=== PATIENT | female | born 1950 | race Caucasian/White ===

== ENCOUNTER 2018-01-23 19:04 | Observation (INO) ==
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
[2018-01-23 19:50] LABS: Basophils % 0.4 %; Eosinophils # 0.2 K/mcL (0.0-0.6); Eosinophils % 2.3 %; Hematocrit 35.7 % (35.3-44.9); Hemoglobin 12.3 g/dL (11.5-15.4); Immature Granulocytes % 0.3 % (0-4); Lymphocytes # 1.4 K/mcL (0.6-4.6); Lymphocytes % 14.7 %; Mean Corpuscular HGB Conc 34.5 g/dL (31.6-35.5); Mean Corpuscular Hemoglobin 32.2 pg (28.0-33.3); Mean Corpuscular Volume 93.5 fL (83.0-100.0); Mean Platelet Volume 10.1 fL (9.4-12.4); Monocytes # 0.7 K/mcL (0.0-1.3); Neutrophils # 7.4 K/mcL (1.6-8.9); Platelet Count 345 K/mcL (140-400); Red Blood Count 3.82 M/mcL (3.82-4.97); Red Cell Distribution Width 12.1 % (11.5-14.5); Segmented Neutrophils % 75.3 %
[2018-01-23 20:02] LABS: Prothrombin Time 10.5 Seconds (9.4-12.1)
[2018-01-23 20:04] LABS: Activated Partial Thrombo Time 27.3 Seconds (26.0-36.0)
[2018-01-23 20:09] LABS: Albumin 3.8 g/dL (3.5-5.7); Albumin/Globulin Ratio 1.5 (1.1-2.2); Bilirubin,Direct 0.1 mg/dL (0.0-0.2); Bilirubin,Indirect 0.3 mg/dL (0.0-1.2); Bilirubin,Total 0.4 mg/dL (0.3-1.0); Globulin 2.5 g/dL (2.4-3.5); Total Protein 6.3 g/dL (6.4-8.9)
[2018-01-23 20:12] LABS: Troponin I < 0.03 ng/mL (< 0.04)
[2018-01-23 20:13] LABS: BUN/Creatinine Ratio 26 (6-26); Blood Urea Nitrogen 11 mg/dL (8-23); Calcium 9.3 mg/dL (8.6-10.3); Carbon Dioxide 24 mEq/L (23-29); Chloride 105 mEq/L (98-107); Glucose 125 mg/dL (70-105); Osmolality,Calculated 285 (280-300); Potassium 4.5 mEq/L (3.5-5.1); Sodium 137 mEq/L (136-145); eGFR For African Americans > 60 (> 60); eGFR For Non-African Americans > 60 (> 60)
[2018-01-23] MEDS ORDERED: *HR* Dextrose 50 % in Water (Syg) 50 ML SYRINGE IVP PRN (21:45)
[2018-01-23] MEDS ORDERED: *HR* OxyCODONE Immed Rel 5 MG TABLET PO PRN (21:45)
[2018-01-23] MEDS ORDERED: Naloxone 0.4 MG/ML INJ IVP PRN (21:45)
[2018-01-23] MEDS ORDERED: Dextrose Gel 15 GM/37.5 ML TUBE PO PRN ×2 (21:45)
[2018-01-23] MEDS ORDERED: Acetaminophen 325 MG TABLET PO PRN (21:45)
[2018-01-23] MEDS ORDERED: D5% in Water 1,000 ML IVC PRN (21:45)
[2018-01-23] MEDS ORDERED: Nitroglycerin 0.4 MG TAB.SUBL SL PRN (21:49)
[2018-01-23] MEDS ORDERED: NON-FORMULARY MEDICATION 1 EACH EACH (Insulin Glargine,Hum.Rec.Anlog [Lantus Solostar] 7 U SQ SCH (22:00)
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
[2018-01-23] MEDS: Insulin DETEMIR 100 UNIT/ML X5UNITS SQ SCH (22:51)
[2018-01-23] MEDS: *HR* Heparin 5,000 UNIT/ML VIAL SQ SCH (22:51)
[2018-01-24 02:27] LABS: Basophils # 0.1 K/mcL (0.0-0.2); Basophils % 0.5 %; Eosinophils # 0.2 K/mcL (0.0-0.6); Eosinophils % 2.4 %; Hematocrit 34.2 % (35.3-44.9); Hemoglobin 11.6 g/dL (11.5-15.4); Immature Granulocytes % 0.4 % (0-4); Lymphocytes # 2.4 K/mcL (0.6-4.6); Lymphocytes % 23.8 %; Mean Corpuscular HGB Conc 33.9 g/dL (31.6-35.5); Mean Corpuscular Hemoglobin 31.4 pg (28.0-33.3); Mean Corpuscular Volume 92.7 fL (83.0-100.0); Mean Platelet Volume 10.4 fL (9.4-12.4); Monocytes # 0.8 K/mcL (0.0-1.3); Monocytes % 7.7 %; Neutrophils # 6.5 K/mcL (1.6-8.9); Platelet Count 339 K/mcL (140-400); Red Blood Count 3.69 M/mcL (3.82-4.97); Red Cell Distribution Width 12.2 % (11.5-14.5); Segmented Neutrophils % 65.2 %
[2018-01-24 02:49] LABS: Alanine Aminotransferase 19 Units/L (7-52); Albumin 3.5 g/dL (3.5-5.7); Albumin/Globulin Ratio 1.5 (1.1-2.2); Alkaline Phosphatase 55 Units/L (34-104); Aspartate Amino Transferase 15 Units/L (13-39); BUN/Creatinine Ratio 26 (6-26); Bilirubin,Total 0.4 mg/dL (0.3-1.0); Blood Urea Nitrogen 13 mg/dL (8-23); Calcium 9.1 mg/dL (8.6-10.3); Carbon Dioxide 24 mEq/L (23-29); Chloride 106 mEq/L (98-107); Chol/HDL Ratio 3.8 (0-4.9); Cholesterol 129 mg/dL (< 200); Globulin 2.4 g/dL (2.4-3.5); Glucose 125 mg/dL (70-105); HDL Cholesterol 34 mg/dL (40-59); LDL Cholesterol,Calculated 59 mg/dL (0-99); Magnesium 1.4 mg/dL (1.6-2.6); Osmolality,Calculated 292 (280-300); Potassium 4.1 mEq/L (3.5-5.1); Sodium 140 mEq/L (136-145); Total Protein 5.9 g/dL (6.4-8.9); Triglycerides 178 mg/dL (< 150); eGFR For African Americans > 60 (> 60); eGFR For Non-African Americans > 60 (> 60)
[2018-01-24] MEDS: *HR* Heparin 5,000 UNIT/ML VIAL SQ SCH ×2 (04:55→17:26)
[2018-01-24] MEDS ORDERED: Regadenoson 0.4 MG/5 ML SYRINGE IVP ONE (06:16)
[2018-01-24] MEDS: Cholecalciferol (D-3) 1,000 UNIT TABLET PO SCH (09:45)
[2018-01-24] MEDS: Lactobacillus 1 EACH CAP.SPRINK PO SCH (09:45)
[2018-01-24] MEDS: Aspirin 81 MG TAB.CHEW PO SCH (09:45)
[2018-01-24] MEDS: Multivit/Ca/Min/Fe/FA 1 TAB TABLET PO SCH (09:45)
[2018-01-24] MEDS: Insulin LISPRO 300 UNITS/3 ML VIAL SQ SCH ×3 (09:46→17:15)
[2018-01-24] MEDS: Insulin DETEMIR 100 UNIT/ML X5UNITS SQ SCH ×2 (09:46→21:27)
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
--- NOTE | 2018-01-25 05:27 | Electrocardiograph Report ---
[address] [address] Test Date: 2018-01-23 Pat Name: Viktoria Hanks Department: 103 Room: 3B11 Gender: F Diamond Selector: : 1950 Requested By: [id number] Order Number: [id number] Reading MD: Corwin Son Measurements Intervals [place] Rate: 82 P: 14 DE: 135 QRS: 38 QRSD: 122 T: 30 QT: 392 QTc: 430 Interpretive Statements SINUS RHYTHM RIGHT BUNDLE BRANCH BLOCK Electronically Signed On 01-25-2018 5:25:51 EDT by Corwin Son
[2018-01-25] MEDS: *HR* Heparin 5,000 UNIT/ML VIAL SQ SCH (05:59)
[2018-01-25 07:02] VITALS: BP 105/56
[2018-01-25] MEDS: Insulin LISPRO 300 UNITS/3 ML VIAL SQ SCH (08:42)
[2018-01-25] MEDS: Aspirin 81 MG TAB.CHEW PO SCH (10:03)
[2018-01-25] MEDS: Cholecalciferol (D-3) 1,000 UNIT TABLET PO SCH (10:03)
[2018-01-25] MEDS: Multivit/Ca/Min/Fe/FA 1 TAB TABLET PO SCH (10:03)
[2018-01-25] MEDS: Lactobacillus 1 EACH CAP.SPRINK PO SCH (10:04)
[2018-01-25] MEDS: Insulin DETEMIR 100 UNIT/ML X5UNITS SQ SCH (10:09)
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
== END 2018-01-25 12:17 | disposition home or self-care (01) ==
LOC: EMEROO 19:04 → 3BNU 19:04
PROVIDERS: ADMIT Internal Medicine; ATTEND Internal Medicine

== ENCOUNTER 2018-02-27 14:51 | Observation (INO) ==
[2018-02-27 15:47] LABS: Basophils # 0.1 K/mcL (0.0-0.2); Basophils % 0.6 %; Eosinophils # 0.3 K/mcL (0.0-0.6); Eosinophils % 2.2 %; Hematocrit 38.1 % (35.3-44.9); Hemoglobin 12.9 g/dL (11.5-15.4); Immature Granulocytes % 0.3 % (0-4); Lymphocytes # 2.5 K/mcL (0.6-4.6); Lymphocytes % 20.9 %; Mean Corpuscular HGB Conc 33.9 g/dL (31.6-35.5); Mean Corpuscular Hemoglobin 31.2 pg (28.0-33.3); Mean Corpuscular Volume 92.3 fL (83.0-100.0); Monocytes # 1.1 K/mcL (0.0-1.3); Monocytes % 8.7 %; Neutrophils # 8.2 K/mcL (1.6-8.9); Platelet Count 370 K/mcL (140-400); Red Blood Count 4.13 M/mcL (3.82-4.97); Red Cell Distribution Width 12.2 % (11.5-14.5); Segmented Neutrophils % 67.3 %
[2018-02-27 16:07] LABS: BUN/Creatinine Ratio 24 (6-26); Blood Urea Nitrogen 12 mg/dL (8-23); Calcium 9.6 mg/dL (8.6-10.3); Carbon Dioxide 24 mEq/L (23-29); Chloride 106 mEq/L (98-107); Glucose 178 mg/dL (70-105); Osmolality,Calculated 294 (280-300); Potassium 3.9 mEq/L (3.5-5.1); Sodium 140 mEq/L (136-145); eGFR For African Americans > 60 (> 60); eGFR For Non-African Americans > 60 (> 60)
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
[2018-02-27 19:17] LABS: Acetaminophen < 10 mcg/mL (10-20); Ethanol < 10 mg/dL (Less than 10); Salicylate < 2.5 mg/dL (15.0-30.0)
[2018-02-27 19:31] LABS: Thyroid Stimulating Hormone 3.613 mcIU/mL (0.340-5.600)
[2018-02-27 19:54] LABS: Bilirubin,Urine Negative (Negative); Blood,Urine Negative (Negative); Clarity,Urine Clear (Clear); Color,Urine Yellow (Yellow); Glucose,Urine (UA) >=1000 mg/dL (Normal); Ketones,Urine Negative (Negative); Leukocyte Esterase,Urine Small (Negative); Nitrite,Urine Negative (Negative); Protein,Urine Negative (Neg-Trace); Specific Gravity,Urine 1.025 (1.010-1.025); Urobilinogen,Urine Normal (Normal)
[2018-02-27 19:56] LABS: Bacteria,Urine None Seen per hpf (None-Few); Hyaline Casts,Urine None Seen per lpf (None-Few); RBC,Urine 0-3 per hpf (0-3); Squamous Epithelial Cell,Urine Many per lpf (None-Few); WBC,Urine 15-30 per hpf (0-3)
[2018-02-27 20:06] LABS: Amphetamine Screen,Urine Negative ng/mL (Cutoff=1000); Barbiturate Screen,Urine Negative ng/mL (Cutoff=200); Benzodiazepines Screen,Urine Negative ng/mL (Cutoff=200); Cannabinoid Screen,Urine Negative ng/mL (Cutoff = 50); Cocaine Screen,Urine Negative ng/mL (Cutoff= 300); Opiate Screen,Urine Negative ng/mL (Cutoff=300); Phencyclidine Screen,Urine Negative ng/mL (Cutoff=25)
--- NOTE | 2018-02-27 22:37 | Emergency Department Note ---
Disposition Clinical Impression: Hallucinations Disposition: Still a Patient Condition: Fair Referrals: Makenzie Olivas MD [Primary Care Provider] - Forms: ED Satisfaction Letter, Work/School Release General Adult HPI - General Chief complaint: ED General Medical Stated complaint: social consult Time Seen by Provider: 02/27/18 17:59 Source: patient, other Limitations: no limitations Nursing Notes Reviewed: Yes Vital Signs Reviewed: Yes - History of Present Illness Pain Scale: 0 - Related Data Home Medications Medication Instructions Recorded Confirmed Aspirin [Lo-Dose Aspirin EC] 81 mg PO DAILY 01/23/18 01/23/18 Atenolol [Tenormin] 50 mg PO BID 01/23/18 01/23/18 Atorvastatin Calcium [Lipitor] 20 mg PO HS 01/23/18 01/23/18 Calcium Carbonate [Calcium] 500 mg PO DAILY 01/23/18 01/23/18 Cholecalciferol (D-3) [Vitamin D] 1,000 unit PO DAILY 01/23/18 01/23/18 FLUoxetine HCl [Fluoxetine HCl] 40 mg PO DAILY 01/23/18 01/23/18 Insulin Glargine,Hum.rec.anlog 15 units SQ HS 01/23/18 01/23/18 [Lantus Solostar] Insulin Glargine,Hum.rec.anlog 20 units SQ QA 01/23/18 01/23/18 [Lantus Solostar] Lactobacillus Combination No.8 1 cap PO DAILY 01/23/18 01/23/18 [Adult Probiotic] Linagliptin [Tradjenta] 5 mg PO DAILY 01/23/18 01/23/18 Multivitamin [One Daily Essential] 1 tab PO DAILY 01/23/18 01/23/18 Quetiapine Fumarate [Seroquel] 25 mg PO BID 01/23/18 01/23/18 Allergies Allergy/AdvReac Type Severity Reaction Status Date / Time Cefaclor [From Ceclor] Allergy Rash Verified 02/27/18 15:01 Penicillins Allergy Rash Verified 02/27/18 15:01 Past Medical History - Past Medical History Medical history: Reports: dementia, diabetes, hypertension, other Surgical history: Reports: hysterectomy, other (adrenal galnd tumor removal -- benign) Psychiatric history: Reports: no psych history - Social History Smoking Status: Never smoker Smokeless Tobacco Status: No Alcohol use: Reports: none Drug use: Reports: none Physical Exam - General Limitations: no limitations General appearance: alert, in no apparent distress Course Vital Signs Temperature 98.2 F 02/27/18 15:01 Pulse Rate 71 02/27/18 15:01 Respiratory Rate 20 02/27/18 15:01 Blood Pressure 120/72 02/27/18 15:01 O2 Sat by Pulse Oximetry 97 02/27/18 15:01 Temperature 98.2 F 02/27/18 15:01 Pulse Rate 71 02/27/18 15:01 Respiratory Rate 20 02/27/18 15:01 Blood Pressure 120/72 02/27/18 15:01 O2 Sat by Pulse Oximetry 97 02/27/18 15:01 Oxygen Delivery Oxygen Delivery Room Air Medical Decision Making - Lab Data Result diagrams: 02/27/18 15:27 02/27/18 15:27 Lab Results 02/27/18 02/27/18 02/27/18 Range/Units 15:27 15:27 19:15 WBC 12.2 H (4.3-11.1) K/mcL RBC 4.13 (3.82-4.97) M/mcL Hgb 12.9 (11.5-15.4) g/dL Hct 38.1 (35.3-44.9) % MCV 92.3 (83.0-100.0) fL MCH 31.2 (28.0-33.3) pg MCHC 33.9 (31.6-35.5) g/dL RDW 12.2 (11.5-14.5) % Plt Count 370 (140-400) K/mcL MPV 10.0 (9.4-12.4) fL Immature Gran % 0.3 (0-4) % Seg Neutrophils % 67.3 % Lymphocytes % 20.9 % Monocytes % 8.7 % Eosinophils % 2.2 % Basophils % 0.6 % Neutrophils # 8.2 (1.6-8.9) K/mcL Lymphocytes # 2.5 (0.6-4.6) K/mcL Monocytes # 1.1 (0.0-1.3) K/mcL Eosinophils # 0.3 (0.0-0.6) K/mcL Basophils # 0.1 (0.0-0.2) K/mcL Sodium 140 (136-145) mEq/L Potassium 3.9 (3.5-5.1) mEq/L Chloride 106 (98-107) mEq/L Carbon Dioxide 24 (23-29) mEq/L BUN 12 (8-23) mg/dL Creatinine 0.51 L (0.60-1.20) mg/dL Est GFR ( Amer) > 60 (> 60) Est GFR (Non-Af Amer) > 60 (> 60) BUN/Creatinine Ratio 24 (6-26) Glucose 178 H (70-105) mg/dL Calculated Osmolality 294 (280-300) Calcium 9.6 (8.6-10.3) mg/dL TSH 3.613 (0.340-5.600) mcIU/mL Urine Color (Yellow) Urine Clarity (Clear) Urine pH (5.0-8.0) pH Units Ur Specific [place] (1.010-1.025) Urine Protein (Neg-Trace) mg/dL Urine Glucose (UA) (Normal) mg/dL Urine Ketones (Negative) mg/dL Urine Blood (Negative) Urine Nitrite (Negative) Urine Bilirubin (Negative) Urine Urobilinogen (Normal) mg/dL Ur Leukocyte Esterase (Negative) Urine Microscopic RBC (0-3) per hpf Urine Microscopic WBC (0-3) per hpf Ur Squamous Epith Cells (None-Few) per lpf Urine Bacteria (None-Few) per hpf Hyaline Casts (None-Few) per lpf Ur Culture Indicated? (NO) Salicylates < 2.5 L (15.0-30.0) mg/dL Urine Opiates Screen Negative (Yfluyh=577) ng/mL Acetaminophen < 10 L (10-20) mcg/mL Ur Barbiturates Screen Negative (Aydeju=187) ng/mL Ur Phencyclidine Scrn Negative (Cutoff=25) ng/mL Ur Amphetamines Screen Negative (Yswnqb=5049) ng/mL U Benzodiazepines Scrn Negative (Qlnqop=521) ng/mL Urine Cocaine Screen Negative (Cutoff= 300) ng/mL U Marijuana (THC) Screen Negative (Cutoff = 50) ng/mL Ethyl Alcohol < 10 (Less than 10) mg/dL 02/27/18 Range/Units 19:29 WBC (4.3-11.1) K/mcL RBC (3.82-4.97) M/mcL Hgb (11.5-15.4) g/dL Hct (35.3-44.9) % MCV (83.0-100.0) fL MCH (28.0-33.3) pg MCHC (31.6-35.5) g/dL RDW (11.5-14.5) % Plt Count (140-400) K/mcL MPV (9.4-12.4) fL Immature Gran % (0-4) % Seg Neutrophils % % Lymphocytes % % Monocytes % % Eosinophils % % Basophils % % Neutrophils # (1.6-8.9) K/mcL Lymphocytes # (0.6-4.6) K/mcL Monocytes # (0.0-1.3) K/mcL Eosinophils # (0.0-0.6) K/mcL Basophils # (0.0-0.2) K/mcL Sodium (136-145) mEq/L Potassium (3.5-5.1) mEq/L Chloride (98-107) mEq/L Carbon Dioxide (23-29) mEq/L BUN (8-23) mg/dL Creatinine (0.60-1.20) mg/dL Est GFR ( Amer) (> 60) Est GFR (Non-Af Amer) (> 60) BUN/Creatinine Ratio (6-26) Glucose (70-105) mg/dL Calculated Osmolality (280-300) Calcium (8.6-10.3) mg/dL TSH (0.340-5.600) mcIU/mL Urine Color Yellow (Yellow) Urine Clarity Clear (Clear) Urine pH 6.0 (5.0-8.0) pH Units Ur Specific [place] 1.025 (1.010-1.025) Urine Protein Negative (Neg-Trace) mg/dL Urine Glucose (UA) >=1000 H (Normal) mg/dL Urine Ketones Negative (Negative) mg/dL Urine Blood Negative (Negative) Urine Nitrite Negative (Negative) Urine Bilirubin Negative (Negative) Urine Urobilinogen Normal (Normal) mg/dL Ur Leukocyte Esterase Small H (Negative) Urine Microscopic RBC 0-3 (0-3) per hpf Urine Microscopic WBC 15-30 H (0-3) per hpf Ur Squamous Epith Cells Many H (None-Few) per lpf Urine Bacteria None Seen (None-Few) per hpf Hyaline Casts None Seen (None-Few) per lpf Ur Culture Indicated? NO. A (NO) Salicylates (15.0-30.0) mg/dL Urine Opiates Screen (Upxlvg=686) ng/mL Acetaminophen (10-20) mcg/mL Ur Barbiturates Screen (Jyhojn=545) ng/mL Ur Phencyclidine Scrn (Cutoff=25) ng/mL Ur Amphetamines Screen (Bwktlf=5340) ng/mL U Benzodiazepines Scrn (Kpjkwk=056) ng/mL Urine Cocaine Screen (Cutoff= 300) ng/mL U Marijuana (THC) Screen (Cutoff = 50) ng/mL Ethyl Alcohol (Less than 10) mg/dL Attestation Statement - Attestation Attestation: I, Deepak Fisher, examined this patient and my medical decision-making was reviewed with the [employer]/PA/Advanced Practice Nurse/Resident Physician. I agree with the documented findings, disposition and treatment plan as described except to the extent set forth below. 68-year-old female presents emergency Department with concerns of hallucinations and inability to care for self. Patient is blind, daughter states patient has been having visual hallucinations of people, she has been talking with them. This is been occurring for the past year however over the past 2 weeks the hallucinations convinced her of various things. They convinced her that she was getting a new puppy, the patient became very excited and then upset when she found out that this was not real. Patient denies suicidal ideation or homicidal ideation. We will medically clear and have evaluated by 1A for further care and evaluation. Patient does have home care that visits daily to help with food prep. He should not has been trying to cook for herself however she does not know when food is done and often benoit food in the house.
[2018-02-28] MEDS ORDERED: Acetaminophen 325 MG TABLET PO PRN (03:53)
[2018-02-28] MEDS ORDERED: Naloxone 0.4 MG/ML INJ IVP PRN (03:53)
[2018-02-28] MEDS ORDERED: *HR* Dextrose 50 % in Water (Syg) 50 ML SYRINGE IVP PRN (03:57)
[2018-02-28] MEDS ORDERED: Dextrose Gel 15 GM/37.5 ML TUBE PO PRN ×2 (03:57)
[2018-02-28] MEDS ORDERED: D5% in Water 1,000 ML IVC PRN (03:57)
--- NOTE | 2018-02-28 04:29 | Internal Med History&Physical ---
Date of Encounter: 02/28/18 Time of Encounter: 03:30 Internal Medicine - H&P: HPI Chief complaint: hallucinations Admitted From: Emergency Dept Plans for Post Hospital Care: Home History of present illness: Ms. Hanks is a 68 year old female who presents the ER tonight with complaints of hallucinations. 1A was consulted from the ER and felt the patient should be admitted to hospitalist service with psychiatry consultation. There was also concern in the ER about home situation and inability to care for herself. Patient is blind and recently lost custody of her grandson due to her blindness. Upon my assessment of the patient, she is sleeping but easily arousable. She is alert and oriented 3. I questioned her about her hallucinations and she admits having visual hallucinations for roughly 1 year since losing her eyesight. She has been legally blind for over 1 year. She denies any auditory hallucinations. She denies any suicidal or homicidal ideations. She states that she has been treated for these hallucinations with some medication, but it made her too sedated and she subsequently stopped the medication. She does not recall the name of the medication. She has never seen a psychiatrist for hallucinations, however. Regarding her home situation, she states she recently lost custody of her grandson due to her blindness. Her grandson's parents are addicted to drugs and cannot care for him. She prefers not to move from her home as she is used to her surroundings and functions very well in her home, despite her blindness. She does have home care services. She denies any chest pain, shortness of breath, fevers, chills, or night sweats. She did feel a little weak and not herself for the last 2 days. Work-up in ER was negative except for urinalysis suggestive of possible UTI. She denies any dysuria or urinary urgency. Past Med Surg Social Fam HX - Past Medical History Attestation: Yes The following information was validated with the patient. Source: patient, old records reviewed Medical history: diabetes, hypertension, other (blind) Additional medical history: previous uterine cancer, recent skin cancer removal from nose Psychiatric history: no psych history - Past Surgical History Surgical History: hysterectomy, other Additional surgical history: benign adrenal gland tumor removal - Social History Smoking Status: Never smoker Smokeless Tobacco Status: No Alcohol use: none Drug use: none Current living situation: Home - Independent Activity Level: Independent ambulation Recent Out of Country Travel Within the Last 8 Weeks: No - Family History Mother Living Status: Hx Family Cardiac Disorders: No Father Living Status: Internal Medicine - H&P: Meds Aspirin [Lo-Dose Aspirin EC] 81 mg PO DAILY 01/23/18 [History] Atenolol [Tenormin] 50 mg PO BID 01/23/18 [History] Atorvastatin Calcium [Lipitor] 20 mg PO HS 01/23/18 [History] Calcium Carbonate [Calcium] 500 mg PO DAILY 01/23/18 [History] Cholecalciferol (D-3) [Vitamin D] 1,000 unit PO DAILY 01/23/18 [History] FLUoxetine HCl [Fluoxetine HCl] 40 mg PO DAILY 01/23/18 [History] Insulin Glargine,Hum.rec.anlog [Lantus Solostar] 15 units SQ 01/23/18 [ History] Insulin Glargine,Hum.rec.anlog [Lantus Solostar] 20 units SQ [facility] 01/23/18 [ History] Lactobacillus Combination No.8 [Adult Probiotic] 1 cap PO DAILY 01/23/18 [ History] Linagliptin [Tradjenta] 5 mg PO DAILY 01/23/18 [History] Multivitamin [One Daily Essential] 1 tab PO DAILY 01/23/18 [History] metFORMIN [Glucophage] 1,000 mg PO BID 02/27/18 [History] 3 Allergy/AdvReac Type Severity Reaction Status Date / Time Cefaclor [From [facility]] Allergy Rash Verified 02/27/18 15:01 Penicillins Allergy Rash Verified 02/27/18 15:01 - Constitutional Constitutional: fatigue, no chills, no fever(s), no night sweats - EENT Eyes: loss of vision (chronic) Ears: no ear pain, no tinnitus Nose, mouth and throat: no sinus pressure, no sore throat - Cardiovascular Cardiovascular ROS IM: no chest pain, no dyspnea, no dyspnea on exertion, no edema - Respiratory Respiratory: no cough, no dyspnea, no chest congestion, no excessive phlegm production - Gastrointestinal Gastrointestinal: no abdominal pain, no diarrhea, no nausea, no vomiting - Genitourinary Genitourinary: no dysuria, no urinary urgency - Musculoskeletal Musculoskeletal ROS IM: no arthralgias, no back pain - Neurological Neurological ROS: no focal weakness, no frequent falls, no headache(s) - Psychiatric Psychiatric: visual hallucinations, no auditory hallucinations, no homicidal ideation, no suicidal ideation - Endocrine Endocrine IM: no polydipsia, no polyuria - Allergic/Immunologic Allergic/Immunologic: no GI upset with certain foods - Constitutional Vitals: Temp Pulse Resp BP Pulse Ox 97.6 F 76 15 142/66 96 02/28/18 00:31 02/28/18 00:31 02/28/18 00:31 02/28/18 00:02/28/18 00:31 General appearance: Present: cooperative, A&O X 3, pleasant, no acute distress, answers questions appropriately - Head Head exam: Present: normal inspection - Eye Eye exam: Present: EOMI. Absent: scleral icterus - ENT ENT exam: Present: mucous membranes dry, normal exam, normal oropharynx - Neck Neck exam general surgery: Present: full ROM, supple. Absent: lymphadenopathy, tenderness, nuchal rigidity, thyromegaly - Respiratory Respiratory exam: Present: CTAB. Absent: chest wall tenderness, rales, respiratory distress, rhonchi, wheezes - Cardiovascular Cardiovascular exam: Present: RRR, +S1, +S2. Absent: diastolic murmur, systolic murmur - GI/Abdominal GI/Abdominal exam: Present: normal bowel sounds, soft. Absent: guarding, hepatomegaly, mass, rebound, splenomegaly, tenderness - Extremities Exam Extremities exam: Present: full ROM, normal capillary refill, warm, radial pulses palpable and symmetrical. Absent: calf tenderness, pedal edema, tenderness - Back Exam Back exam: Present: normal inspection. Absent: CVA tenderness (L), CVA tenderness (R) - Neurological Exam Neurological exam: Present: alert, oriented X3 Additional comments: blind; decreased sensation peripherally -- chronic - Psychiatric Psychiatric exam: Present: normal affect, normal mood. Absent: anxious, depressed, homicidal ideation, suicidal ideation - Skin Skin exam: Present: dry, intact, warm Internal Med - H&P Results - Labs CBC & Chem 7: 02/27/18 15:27 02/27/18 15:27 - Diagnostic Studies Chest x-ray Status: image reviewed by me (negative) CT scan - head Status: image reviewed by me (negative) - Assessment and plan (1) Hallucinations Current Visit: Yes Status: Acute Assessment and plan: 1. Patient acknowledges them and has sought help for them. New since onset of blindness. 2. Consult psychiatry for medication recommendation. 3. Despite lack of urinary symptoms, will culture urine and treat with Cipro empirically until cultures resulted. 4. Consult social worker psychiatric for DC planning. (2) Weakness Current Visit: Yes Status: Acute Assessment and plan: 1. No focal weakness noted. 2. Patient complains of generalized weakness. Possibly related to UTI. 3. Repeat labs in the morning and reassess patient clinically. May benefit from PT/OT evaluations. (3) IDDM (insulin dependent diabetes mellitus) Current Visit: Yes Status: Chronic Assessment and plan: 1. Continue home Levemir dosing. 2. Hold oral home meds. 3. Will use SSI and monitor glucose closely. (4) DVT prophylaxis Current Visit: No Status: Acute Assessment and plan: 1. Heparin SQ.
[2018-02-28] MEDS: *HR* Heparin 5,000 UNIT/ML VIAL SQ SCH ×2 (05:26→19:49)
[2018-02-28 05:35] LABS: Basophils # 0.1 K/mcL (0.0-0.2); Basophils % 0.5 %; Eosinophils # 0.2 K/mcL (0.0-0.6); Eosinophils % 2.4 %; Hematocrit 34.9 % (35.3-44.9); Hemoglobin 11.9 g/dL (11.5-15.4); Immature Granulocytes % 0.2 % (0-4); Lymphocytes % 20.2 %; Mean Corpuscular HGB Conc 34.1 g/dL (31.6-35.5); Mean Corpuscular Hemoglobin 31.6 pg (28.0-33.3); Mean Corpuscular Volume 92.8 fL (83.0-100.0); Mean Platelet Volume 10.3 fL (9.4-12.4); Monocytes # 0.9 K/mcL (0.0-1.3); Neutrophils # 6.6 K/mcL (1.6-8.9); Platelet Count 332 K/mcL (140-400); Red Blood Count 3.76 M/mcL (3.82-4.97); Red Cell Distribution Width 12.1 % (11.5-14.5); Segmented Neutrophils % 67.7 %
[2018-02-28 05:37] LABS: Prothrombin Time 10.7 Seconds (9.4-12.1)
[2018-02-28 05:50] LABS: Alanine Aminotransferase 18 Units/L (7-52); Albumin 3.9 g/dL (3.5-5.7); Albumin/Globulin Ratio 1.4 (1.1-2.2); Alkaline Phosphatase 55 Units/L (34-104); Aspartate Amino Transferase 13 Units/L (13-39); BUN/Creatinine Ratio 26 (6-26); Bilirubin,Total 0.4 mg/dL (0.3-1.0); Blood Urea Nitrogen 12 mg/dL (8-23); Calcium 9.2 mg/dL (8.6-10.3); Carbon Dioxide 24 mEq/L (23-29); Chloride 106 mEq/L (98-107); Globulin 2.7 g/dL (2.4-3.5); Glucose 241 mg/dL (70-105); Osmolality,Calculated 292 (280-300); Phosphorous 3.3 mg/dL (2.7-4.5); Potassium 4.1 mEq/L (3.5-5.1); Sodium 137 mEq/L (136-145); Total Protein 6.6 g/dL (6.4-8.9); eGFR For African Americans > 60 (> 60); eGFR For Non-African Americans > 60 (> 60)
[2018-02-28 08:18] LABS: Estimated Average Glucose 148 mg/dl; Hemoglobin A1C 6.8 %
[2018-02-28] MEDS: Cholecalciferol (D-3) 1,000 UNIT TABLET PO SCH (10:14)
[2018-02-28] MEDS: Aspirin Enteric Coated 81 MG Tablet PO SCH (10:14)
[2018-02-28] MEDS: Multivit/Ca/Min/Fe/FA 1 TAB TABLET PO SCH (10:14)
[2018-02-28] MEDS: Lactobacillus 1 EACH CAP.SPRINK PO SCH (10:14)
[2018-02-28] MEDS: Insulin DETEMIR 100 UNIT/ML X5UNITS SQ SCH (10:16)
[2018-02-28] MEDS: Insulin LISPRO 300 UNITS/3 ML VIAL SQ SCH ×3 (10:17→19:46)
--- NOTE | 2018-02-28 16:49 | Internal Med Progress Note ---
Date of Encounter: 02/28/18 Time of Encounter: 16:47 - Assessment and plan (1) Hallucinations Current Visit: Yes Status: Acute Assessment and plan: Patient acknowledges them and has sought help for them. New since onset of blindness. Consult psychiatry for medication recommendation. Recommendations appreciated. Consult geriatric social worker for DC planning. (2) Weakness Current Visit: Yes Status: Acute Assessment and plan: No focal weakness, Possibly UTI PT/OT eval (3) IDDM (insulin dependent diabetes mellitus) Current Visit: Yes Status: Chronic Assessment and plan: Home Levemir hold PO home meds, ISS, accuchecks. (4) DVT prophylaxis Current Visit: No Status: Acute Assessment and plan: Heparin SQ. - Time Spent With Patient Total time spent is greater than 50% in coordination of care (as documented) at patient's floor/unit and/or counseling patient: - Subjective Interval history: No complaints, no acute events. - Constitutional Vitals: Temp Pulse Resp BP Pulse Ox 98.0 F 74 14 141/77 97 02/28/18 16:19 02/28/18 16:19 02/28/18 16:19 02/28/18 16:19 02/28/18 16:19 General appearance: Present: cooperative, A&O X 3, pleasant, no acute distress, answers questions appropriately Exam: - Head Head exam: Present: normal inspection - Eye Eye exam: Present: EOMI. Absent: scleral icterus - ENT ENT exam: Present: mucous membranes dry, normal exam, normal oropharynx - Neck Neck exam general surgery: Present: full ROM, supple. Absent: lymphadenopathy, tenderness, nuchal rigidity, thyromegaly - Respiratory Respiratory exam: Present: CTAB. Absent: chest wall tenderness, rales, respiratory distress, rhonchi, wheezes - Cardiovascular Cardiovascular exam: Present: RRR, +S1, +S2. Absent: diastolic murmur, systolic murmur - GI/Abdominal GI/Abdominal exam: Present: normal bowel sounds, soft. Absent: guarding, hepatomegaly, mass, rebound, splenomegaly, tenderness - Extremities Exam Extremities exam: Present: full ROM, normal capillary refill, warm, radial pulses palpable and symmetrical. Absent: calf tenderness, pedal edema, tenderness - Back Exam Back exam: Present: normal inspection. Absent: CVA tenderness (L), CVA tenderness (R) - Neurological Exam Neurological exam: Present: alert, oriented X3 Additional comments: blind; decreased sensation peripherally -- chronic - Psychiatric Psychiatric exam: Present: normal affect, normal mood. Absent: anxious, depressed, homicidal ideation, suicidal ideation - Skin Skin exam: Present: dry, intact, warm Internal Medicine: Result - Labs CBC & Chem 7: 02/28/18 05:11 02/28/18 05:11 Labs: Short CBC 02/28/18 Range/Units 05:11 WBC 9.8 (4.3-11.1) K/mcL Hgb 11.9 (11.5-15.4) g/dL Hct 34.9 L (35.3-44.9) % Plt Count 332 (140-400) K/mcL Neutrophils # 6.6 (1.6-8.9) K/mcL BMP 02/28/18 05:11 Sodium 137 Potassium 4.1 Chloride 106 Carbon Dioxide 24 BUN 12 Creatinine 0.47 L Glucose 241 H Calcium 9.2 Liver Function 02/28/18 Range/Units 05:11 Total Bilirubin 0.4 (0.3-1.0) mg/dL AST 13 (13-39) Units/L ALT 18 (7-52) Units/L Alkaline Phosphatase 55 (34-104) Units/L Albumin 3.9 (3.5-5.7) g/dL - ABG Interpretation ABG results: PT/INR, D-dimer PT 10.7 Seconds (9.4-12.1) 02/28/18 05:11 Consult Discharge Plan - Plan Referrals: Makenzie Olivas MD [Primary Care Provider] -
--- NOTE | 2018-02-28 19:04 | Consult Note ---
Date of Encounter: 02/28/18 Time of Encounter: 18:30 Assessment & Recommendation (1) Hallucinations Current visit: Yes Status: Acute History of Present Illness Patient: new to practice Requesting Physician: Kushal Turner History of present illness: Pt is a 68 yo, , female, legally blind who presents for visional hallucinations. PT noted a recent exacerbation of hallucinations and poor sleep upon losing her vision. PT noted she was prescribed quetiapine however was unable to take it due to over sedation and falling at night. Pt agreed to attempt risperidone at a low dose, pt was educated on the risks benefits and side-effects (including TD) of the current medication, including no medication pt was in agreement to start medication. Pt noted she felt safe and comfortable on the unit. Pt was in agreement with treatment plan. Pt was very polite and articulate during the interview process. Pt was resting comfortably with her legs crossed sitting up right in bed listening to the TV. Pt noted that she is doing better today. Pt noted she slept 8-10 hours last night. Pt noted her appetite is good. Pt rated her depression a 0, on a scale of zero to ten with ten being the worst and zero being none. Pt rate her anxiety a 0, on the same scale. Pt denied any current visual or auditory hallucinations at time of interview however noted they have been occurring all day. Pt denied any thoughts to harm herself or anyone else. Tobacco: Denies Alcohol: Denies Street: Denies Caffeine: 2-3 per day 1.Interval hx 2.Continue current medications 3.Review current labs 4.Pt had an opportunity to ask questions and discuss current treatment plan. 5.Supportive therapy was provided 6.Pt encouraged to consider group or individual therapy 7.Pt was in agreement with treatment plan. 8.Pt was educated on the risks benefits and side effects of current medications. 9. Start risperidone 0.5 mg PO QHS for hallucinations. CC: Kushal Turner Past Med Surg Social Fam HX - Past Medical History Medical history: diabetes, hypertension, other (blind) - Past Surgical History Surgical History: hysterectomy, other - Social History Smoking Status: Never smoker Smokeless Tobacco Status: No Alcohol use: none Drug use: none - Family History Mother Living Status: Hx Family Cardiac Disorders: No Father Living Status: Medications & Allergies Aspirin [Lo-Dose Aspirin EC] 81 mg PO DAILY 05/08/18 [History] Atenolol [Tenormin] 50 mg PO BID 01/23/18 [History] Atorvastatin Calcium [Lipitor] 20 mg PO HS 01/23/18 [History] Calcium Carbonate [Calcium] 500 mg PO DAILY 01/23/18 [History] Cholecalciferol (D-3) [Vitamin D] 1,000 unit PO DAILY 01/23/18 [History] FLUoxetine HCl [Fluoxetine HCl] 40 mg PO DAILY 01/23/18 [History] Insulin Glargine,Hum.rec.anlog [Lantus Solostar] 15 units SQ HS 01/23/18 [ History] Insulin Glargine,Hum.rec.anlog [Lantus Solostar] 20 units SQ QA 01/23/18 [ History] Lactobacillus Combination No.8 [Adult Probiotic] 1 cap PO DAILY 01/23/18 [ History] Linagliptin [Tradjenta] 5 mg PO DAILY 01/23/18 [History] Multivitamin [One Daily Essential] 1 tab PO DAILY 01/23/18 [History] metFORMIN [Glucophage] 1,000 mg PO BID 02/27/18 [History] 3 Allergy/AdvReac Type Severity Reaction Status Date / Time Cefaclor [From [facility]] Allergy Rash Verified 02/28/18 09:50 Penicillins Allergy Rash Verified 02/28/18 09:50 Review of Systems Constitutional: Denies: fever, chills, weakness, weight change Eyes: Denies: eye pain, vision change Ears, Nose, Throat: Denies: ear pain, throat pain, dental pain, hearing loss, congestion Cardiovascular: Denies: chest pain, palpitations, dyspnea on exertion Respiratory: Denies: cough, dyspnea, wheezes Gastrointestinal: Denies: abdominal pain, nausea, vomiting, diarrhea, constipation Genitourinary female: Denies: urgency, dysuria, frequency, abnormal menses, dyspareunia Musculoskeletal: Denies: joint swelling, joint pain Integumentary: Denies: rash, lesions, pruritus Neurological: Denies: headache, weakness, numbness, memory loss Psychiatric: Reports: auditory hallucinations, visual hallucinations Endocrine: Denies: fatigue, heat or cold intolerance Hematologic/Lymphatic: Denies: easy bruising, lymphadenopathy Allergic/Immunologic: Denies: urticaria, itchy eyes Psychiatry Exam - Constitutional Vitals: Temp Pulse Resp BP Pulse Ox 98.0 F 74 14 141/77 97 02/28/18 16:19 02/28/18 16:19 02/28/18 16:19 02/28/18 16:19 02/28/18 16:19 General appearance: age & developmentally appropriate, well-groomed, well- nourished - Musculoskeletal Gait: normal Station: relaxed Strength & Tone: normal for patient - Psychiatric Patient Orientation: Yes Person, Yes Time, Yes Place Level of alertness: Alert Behavior: calm, cooperative Psychomotor activity: Normal Eye Contact: Maintains Eye Contact Mood Description: Euthymic/stable Affect description: congruent with mood, full range Speech Volume: Normal Speech pattern: normal rate, normal rhythm, normal tone, fluent, spontaneous Language & Vocabulary: consistent with education Thought Process: Linear, Goal Oriented Thought Content: No Suicidal ideation, No Homicidal ideation, No Overt delusions Perceptual Disturbances: Yes Auditory hallucinations, Yes Visual hallucinations Attention Span Ability: Capable of Focused Attention Memory Description: Grossly Intact Patient Reliability: Reliable Historian Fund of knowledge: Yes abstraction ability, Yes aware of current events Intelligence Estimate: Average Judgment: Fair Insight: Full Results - Labs Labs: Laboratory Last Values WBC 9.8 K/mcL (4.3-11.1) 02/28/18 05:11 RBC 3.76 M/mcL (3.82-4.97) L 02/28/18 05:11 Hgb 11.9 g/dL (11.5-15.4) 02/28/18 05:11 Hct 34.9 % (35.3-44.9) L 02/28/18 05:11 MCV 92.8 fL (83.0-100.0) 02/28/18 05:11 MCH 31.6 pg (28.0-33.3) 02/28/18 05:11 MCHC 34.1 g/dL (31.6-35.5) 02/28/18 05:11 RDW 12.1 % (11.5-14.5) 02/28/18 05:11 Plt Count 332 K/mcL (140-400) 02/28/18 05:11 MPV 10.3 fL (9.4-12.4) 02/28/18 05:11 Immature Gran % 0.2 % (0-4) 02/28/18 05:11 Seg Neutrophils % 67.7 % 02/28/18 05:11 Lymphocytes % 20.2 % 02/28/18 05:11 Monocytes % 9.0 % 02/28/18 05:11 Eosinophils % 2.4 % 02/28/18 05:11 Basophils % 0.5 % 02/28/18 05:11 Neutrophils # 6.6 K/mcL (1.6-8.9) 02/28/18 05:11 Lymphocytes # 2.0 K/mcL (0.6-4.6) 02/28/18 05:11 Monocytes # 0.9 K/mcL (0.0-1.3) 02/28/18 05:11 Eosinophils # 0.2 K/mcL (0.0-0.6) 02/28/18 05:11 Basophils # 0.1 K/mcL (0.0-0.2) 02/28/18 05:11 PT 10.7 Seconds (9.4-12.1) 02/28/18 05:11 INR 1.0 02/28/18 05:11 APTT 28.0 Seconds (26.0-36.0) 02/28/18 05:11 Sodium 137 mEq/L (136-145) 02/28/18 05:11 Potassium 4.1 mEq/L (3.5-5.1) 02/28/18 05:11 Chloride 106 mEq/L (98-107) 02/28/18 05:11 Carbon Dioxide 24 mEq/L (23-29) 02/28/18 05:11 BUN 12 mg/dL (8-23) 02/28/18 05:11 Creatinine 0.47 mg/dL (0.60-1.20) L 02/28/18 05:11 Est GFR ( Amer) > 60 (> 60) 02/28/18 05:11 Est GFR (Non-Af Amer) > 60 (> 60) 02/28/18 05:11 BUN/Creatinine Ratio 26 (6-26) 02/28/18 05:11 Glucose 241 mg/dL (70-105) H 02/28/18 05:11 POC Glucose 85 mg/dL (70-99) 02/28/18 16:17 Est Mean Plasma Glucose 148 mg/dl 02/28/18 05:11 Hemoglobin A1c 6.8 % (-5.6) H 02/28/18 05:11 Calculated Osmolality 292 (280-300) 02/28/18 05:11 Calcium 9.2 mg/dL (8.6-10.3) 02/28/18 05:11 Phosphorus 3.3 mg/dL (2.7-4.5) 02/28/18 05:11 Total Bilirubin 0.4 mg/dL (0.3-1.0) 02/28/18 05:11 AST 13 Units/L (13-39) 02/28/18 05:11 ALT 18 Units/L (7-52) 02/28/18 05:11 Alkaline Phosphatase 55 Units/L (34-104) 02/28/18 05:11 Serum Total Protein 6.6 g/dL (6.4-8.9) 02/28/18 05:11 Albumin 3.9 g/dL (3.5-5.7) 02/28/18 05:11 Globulin 2.7 g/dL (2.4-3.5) 02/28/18 05:11 Albumin/Globulin Ratio 1.4 (1.1-2.2) 02/28/18 05:11 TSH 3.613 mcIU/mL (0.340-5.600) 02/27/18 15:27 Urine Color Yellow (Yellow) 02/27/18 19:29 Urine Clarity Clear (Clear) 02/27/18 19: Urine pH 6.0 pH Units (5.0-8.0) 02/27/18 19:29 Ur Specific [place] 1.025 (1.010-1.025) 02/27/18 19:29 Urine Protein Negative mg/dL (Neg-Trace) 02/27/18 19:29 Urine Glucose (UA) >=1000 mg/dL (Normal) H 02/27/18 19:29 Urine Ketones Negative mg/dL (Negative) 02/27/18 19: Urine Blood Negative (Negative) 02/27/18 19: Urine Nitrite Negative (Negative) 02/27/18 19: Urine Bilirubin Negative (Negative) 02/27/18 19: Urine Urobilinogen Normal mg/dL (Normal) 02/27/18 19:29 Ur Leukocyte Esterase Small (Negative) H 02/27/18 19:29 Urine Microscopic RBC 0-3 per hpf (0-3) 02/27/18 19:29 Urine Microscopic WBC 15-30 per hpf (0-3) H 02/27/18 19:29 Ur Squamous Epith Cells Many per lpf (None-Few) H 02/27/18 19:29 Urine Bacteria None Seen per hpf (None-Few) 02/27/18 19:29 Hyaline Casts None Seen per lpf (None-Few) 02/27/18 19:29 Ur Culture Indicated? NO. (NO) A 02/27/18 19:29 Salicylates < 2.5 mg/dL (15.0-30.0) L 02/27/18 15:27 Urine Opiates Screen Negative ng/mL (Sznflp=839) 02/27/18 19:15 Acetaminophen < 10 mcg/mL (10-20) L 02/27/18 15:27 Ur Barbiturates Screen Negative ng/mL (Grxujt=869) 02/27/18 19:15 Ur Phencyclidine Scrn Negative ng/mL (Cutoff=25) 02/27/18 19:15 Ur Amphetamines Screen Negative ng/mL (Sgqgmd=9312) 02/27/18 19:15 U Benzodiazepines Scrn Negative ng/mL (Jgtkhk=885) 02/27/18 19:15 Urine Cocaine Screen Negative ng/mL (Cutoff= 300) 02/27/18 19:15 U Marijuana (THC) Screen Negative ng/mL (Cutoff = 50) 02/27/18 19:15 Ethyl Alcohol < 10 mg/dL (Less than 10) 02/27/18 15:27 Consult Discharge Plan - Plan Referrals: Makenzie Olivas MD [Primary Care Provider] -
[2018-02-28] MEDS ORDERED: risperiDONE 0.25 MG TABLET PO SCH (21:00)
[2018-02-28] MEDS ORDERED: Insulin DETEMIR 100 UNIT/ML X5UNITS SQ SCH (21:00)
[2018-03-01] MEDS: *HR* Heparin 5,000 UNIT/ML VIAL SQ SCH (05:13)
[2018-03-01] MEDS: Lactobacillus 1 EACH CAP.SPRINK PO SCH (08:04)
[2018-03-01] MEDS: Cholecalciferol (D-3) 1,000 UNIT TABLET PO SCH (08:04)
[2018-03-01] MEDS: Insulin LISPRO 300 UNITS/3 ML VIAL SQ SCH ×2 (08:04→12:30)
[2018-03-01] MEDS: Multivit/Ca/Min/Fe/FA 1 TAB TABLET PO SCH (08:04)
[2018-03-01] MEDS: Aspirin Enteric Coated 81 MG Tablet PO SCH (08:04)
[2018-03-01] MEDS: Insulin DETEMIR 100 UNIT/ML X5UNITS SQ SCH (08:06)
[2018-03-01 11:03] VITALS: BP 99/60
--- NOTE | 2018-03-01 11:30 | Discharge Summary ---
- NOTES TO OUTPATIENT PROVIDER Notes to Outpatient Provider: Patient with history of blindness reporting hallucinations and was hospitalized for further evaluation. No clear etiology identified but per psychiatric evaluation, she was started on risperidone with some improvement in her ability to sleep. She will follow up further with her primary care provider and psychiatry as outpatient. At this time she is clinically stable to be discharged back home. She was also treated for possible UTI with ciprofloxacin and will complete a 3 day treatment course. Orders not resulted at time of discharge: Pending orders 02/28/18 03:59 Culture,Urine [RM] Stat Date of Encounter: 03/01/18 Time of Encounter: 08:40 - Discharge Diagnosis (1) Hallucinations Priority: Primary Status: Acute (2) DVT prophylaxis Priority: Secondary Status: Acute (3) Weakness Priority: Secondary Status: Acute (4) IDDM (insulin dependent diabetes mellitus) Priority: Secondary Status: Chronic (5) UTI (urinary tract infection) Priority: Secondary Status: Suspected Qualifiers: Urinary tract infection type: acute cystitis Hematuria presence: without hematuria Qualified Code(s): N30.00 - Acute cystitis without hematuria Hospital course: Ms. Hanks is a 68 year old female patient with history of blindness who was reporting hallucinations and was hospitalized for further evaluation. No clear etiology identified but per psychiatric evaluation, she was started on risperidone with some improvement in her ability to sleep. She will follow up further with her primary care provider and psychiatry as outpatient. At this time she is clinically stable to be discharged back home. She was also treated for possible UTI with ciprofloxacin and will complete a 3 day treatment course. I discussed her case with her primary care provider Dr. Makenzie Olivas. Patient has been having trouble following up with appointments and has been paranoid at home. She also lives alone at this time. To my examination, she has been very clearly oriented and has been able to answer my questions. According to Dr. Chauhan this is her baseline and she does talk coherently and appropriately. However she clearly exhibits behavior that can cause her harm in the long-term if she does not take her medications as prescribed and does not keep up her follow-up appointments with her primary care provider. We talked to the patient about this and recommended placement to skilled rehabilitation. However patient does not wish to go to rehabilitation. She also understands the importance of taking medications and understands the risks of not taking her medication and following up appropriately with her primary care provider. She has insisted multiple times that she has a safe plan in place and does not need any additional help. She does state that if she needed additional help she would reach out to her primary care provider or home health nurse or return to the hospital. Given this situation, although I believe that the patient would benefit from placement to skilled rehabilitation at this time , as patient is oriented and answering my questions appropriately, she is able to make decisions for herself. As such we will discharge her home at this time. She is always welcome to return to the hospital if she changes her mind or develops any new symptoms. Discharge discussed with: patient, social work - Time Spent with Patient Total time spent providing and/or coordinating discharge services: Less than 30 minutes (25 min) - Discharge Medications Prescriptions: Ciprofloxacin [Cipro] 500 mg PO BID #4 tablet risperiDONE [RisperDAL] 0.5 mg PO HS #30 tablet Home Medications: Aspirin [Lo-Dose Aspirin EC] 81 mg PO DAILY 01/23/18 [History] Atenolol [Tenormin] 50 mg PO BID 01/23/18 [History] Atorvastatin Calcium [Lipitor] 20 mg PO HS 01/23/18 [History] Calcium Carbonate [Calcium] 500 mg PO DAILY 01/23/18 [History] Cholecalciferol (D-3) [Vitamin D] 1,000 unit PO DAILY 01/23/18 [History] FLUoxetine HCl [Fluoxetine HCl] 40 mg PO DAILY 01/23/18 [History] Insulin Glargine,Hum.rec.anlog [Lantus Solostar] 15 units SQ HS 01/23/18 [ History] Insulin Glargine,Hum.rec.anlog [Lantus Solostar] 20 units SQ QA 01/23/18 [ History] Lactobacillus Combination No.8 [Adult Probiotic] 1 cap PO DAILY 01/23/18 [ History] Linagliptin [Tradjenta] 5 mg PO DAILY 01/23/18 [History] Multivitamin [One Daily Essential] 1 tab PO DAILY 01/23/18 [History] metFORMIN [Glucophage] 1,000 mg PO BID 02/27/18 [History] Ciprofloxacin [Cipro] 500 mg PO BID #4 tablet 03/01/18 [Rx] risperiDONE [RisperDAL] 0.5 mg PO HS #30 tablet 03/01/18 [Rx] Allergies/Adverse Reactions: 3 Allergy/AdvReac Type Severity Reaction Status Date / Time Cefaclor [From [facility]] Allergy Rash Verified 02/28/18 09:50 Penicillins Allergy Rash Verified 02/28/18 09:50 Date of admission: 02/27/18 23:48 Primary care physician: Makenzie Olivas MD Consults: 02/28/18 00:38 Consult to Coatings Inspector [CONS] Stat Reason for SW Consult: Lives alone, is blind and has dementia. 02/28/18 03:53 Consult to Psychiatry [CONS] Routine Consulting Provider: Psychiatry Chandni Reason consult: Medication recommendation Other Other reason and/or additional details: visual hallucinations for 1 year since onset of blindness 02/28/18 16:52 Consult to Occupational Therapy [CONS] Routine Comment: Evaluate, develop and implement POC Reason for Consult: Evaluate, develop and implement POC Does patient have active BEDREST order?: No Is patient medically & hemodynamically stable?: Yes Consult to Physical Therapy [CONS] Routine Comment: Evaluate, develop and implement POC Reason for Consult: Disposition planning. Therapy - weakness in bed. Does patient have active BEDREST order?: No Is patient medically & hemodynamically stable?: Yes Discharging clinician: Andi Osman Anticipated date of discharge: 03/01/18 - Constitutional Vitals: Temp Pulse Resp BP Pulse Ox 97.5 F L 68 14 99/60 97 03/01/18 11:00 03/01/18 11:00 03/01/18 11:00 03/01/18 11:00 03/01/18 11:00 General appearance: Present: cooperative, A&O X 3, pleasant, no acute distress, answers questions appropriately - Eye Additional comments: Blindness at baseline - Respiratory Respiratory exam: Present: CTAB. Absent: accessory muscle use, rales, rhonchi, wheezes - Cardiovascular Cardiovascular exam: Present: RRR, +S1, +S2. Absent: diastolic murmur, gallop, rubs, systolic murmur - GI/Abdominal GI/Abdominal exam: Present: normal bowel sounds, soft, no peritoneal signs. Absent: distended, tenderness - Neurological Exam Neurological exam: Present: alert, oriented X3, no focal deficits. Absent: facial droop, speech deficit - Patient Status Disposition: Home Health Service Condition: Fair Functional capacity at discharge: uses cane/walker Overall status at discharge: patient is progressing back to baseline - Discharge Instructions Instructions: Chest Pain (DC), Diabetes Mellitus Type 2 in Adults (DC) Follow Up With: Makenzie Olivas MD [Primary Care Provider] - 03/09/18 10:00 am (in 1-2 weeks) - Diet and Activity Activity: as per physical therapy Diet: diabetic diet
--- NOTE | 2018-03-01 11:33 | Physician Discharge Referral ---
Home Health/Hosp Referral Info Transfer to: Home Health Provider in Charge Post Discharge: PCP - Diagnosis (1) Hallucinations Priority: Primary Status: Acute (2) Weakness Priority: Secondary Status: Acute (3) IDDM (insulin dependent diabetes mellitus) Priority: Secondary Status: Chronic (4) UTI (urinary tract infection) Priority: Secondary Status: Suspected (5) DVT prophylaxis Priority: Secondary Status: Acute - Respiratory Orders Smoking Cessation: Smoking cessation has been advised. For more information, call the [place] Tobacco Quit Line at 1-356-SGKL-NOW. - Diet/Nutrition Diet/Nutrition Orders: Cardiac, No Concentrated Sweets (diabetic) - Activity Activity Orders: Walker - Services Needed Following services are medically necessary services: Nursing, Home Health Aide, Physical Therapy, Occupational Therapy - Transfer Medications Prescriptions: Ciprofloxacin [Cipro] 500 mg PO BID #4 tablet risperiDONE [RisperDAL] 0.5 mg PO HS #30 tablet Home Medications: Aspirin [Lo-Dose Aspirin EC] 81 mg PO DAILY 01/23/18 [History] Atenolol [Tenormin] 50 mg PO BID 01/23/18 [History] Atorvastatin Calcium [Lipitor] 20 mg PO HS 01/23/18 [History] Calcium Carbonate [Calcium] 500 mg PO DAILY 01/23/18 [History] Cholecalciferol (D-3) [Vitamin D] 1,000 unit PO DAILY 01/23/18 [History] FLUoxetine HCl [Fluoxetine HCl] 40 mg PO DAILY 01/23/18 [History] Insulin Glargine,Hum.rec.anlog [Lantus Solostar] 15 units SQ HS 01/23/18 [ History] Insulin Glargine,Hum.rec.anlog [Lantus Solostar] 20 units SQ QA 01/23/18 [ History] Lactobacillus Combination No.8 [Adult Probiotic] 1 cap PO DAILY 01/23/18 [ History] Linagliptin [Tradjenta] 5 mg PO DAILY 01/23/18 [History] Multivitamin [One Daily Essential] 1 tab PO DAILY 01/23/18 [History] metFORMIN [Glucophage] 1,000 mg PO BID 02/27/18 [History] Ciprofloxacin [Cipro] 500 mg PO BID #4 tablet 03/01/18 [Rx] risperiDONE [RisperDAL] 0.5 mg PO HS #30 tablet 03/01/18 [Rx] Allergies/Adverse Reactions: 3 Allergy/AdvReac Type Severity Reaction Status Date / Time Cefaclor [From [facility]] Allergy Rash Verified 02/28/18 09:50 Penicillins Allergy Rash Verified 02/28/18 09:50 Certification: Further, I certify that my clinical findings support that this patient is homebound (i.e. absences from home require considerable and taxing effort and are for medical reasons or congregation services or infrequently or short duration when for other reasons) because: Homebound Reason: Patient requires assistance of a person or device to safely leave home Attestation: My signature below is to certify that this patient is under my care and that I, or nurse practitioner, or a physician's phlebotomy lab assistant working with me, has a face-to -face encounter with this patient.
== END 2018-03-01 15:02 | disposition home health service (06) ==
LOC: EMEROO 14:51 → 3ANU 14:51 → SUATTDRO 23:48 → 3ANU 02-28 00:15
PROVIDERS: ADMIT Internal Medicine; ATTEND Internal Medicine

== ENCOUNTER 2020-04-18 13:05 | Inpatient (IN) ==
[2020-04-18 13:52] LABS: Basophils % 0.2 %; Eosinophils # 0.3 K/mcL (0.0-0.6); Eosinophils % 1.6 %; Hematocrit 32.6 % (35.3-44.9); Hemoglobin 10.5 g/dL (11.5-15.4); Immature Granulocytes % 1.6 % (0-4); Lymphocytes # 1.5 K/mcL (0.6-4.6); Lymphocytes % 9.5 %; Mean Corpuscular HGB Conc 32.2 g/dL (31.6-35.5); Mean Corpuscular Hemoglobin 29.9 pg (28.0-33.3); Mean Corpuscular Volume 92.9 fL (83.0-100.0); Mean Platelet Volume 10.7 fL (9.4-12.4); Monocytes # 1.7 K/mcL (0.0-1.3); Monocytes % 10.2 %; Neutrophils # 12.4 K/mcL (1.6-8.9); Platelet Count 439 K/mcL (140-400); Red Blood Count 3.51 M/mcL (3.82-4.97); Red Cell Distribution Width 13.1 % (11.5-14.5); Segmented Neutrophils % 76.9 %; White Blood Count 16.1 K/mcL (4.3-11.1)
[2020-04-18 13:59] LABS: INR 1.1; Prothrombin Time 12.5 Seconds (9.4-12.1)
[2020-04-18 14:01] LABS: Activated Partial Thrombo Time 24.3 Seconds (26.0-36.0)
[2020-04-18] MEDS ORDERED: 0.9 % Sodium Chloride 1,000 ML IVC ONE ×2 (14:06→14:52)
[2020-04-18] MEDS ORDERED: Aztreonam 2,000 MG in Water for inj. (sterile) 20 ML IVP ONE (14:07)
[2020-04-18 14:08] LABS: Alanine Aminotransferase 46 Units/L (7-52); Albumin 3.2 g/dL (3.5-5.7); Albumin/Globulin Ratio 0.9 (1.1-2.2); Alkaline Phosphatase 95 Units/L (34-104); Aspartate Amino Transferase 64 Units/L (13-39); BUN/Creatinine Ratio 25 (6-26); Bilirubin,Direct 0.3 mg/dL (0.0-0.2); Bilirubin,Indirect 0.4 mg/dL (0.0-1.0); Bilirubin,Total 0.7 mg/dL (0.3-1.0); Blood Urea Nitrogen 29 mg/dL (8-23); C-Reactive Protein 164 mg/L (Less than 10); Calcium 9.4 mg/dL (8.6-10.3); Carbon Dioxide 20 mEq/L (23-29); Chloride 104 mEq/L (98-107); Globulin 3.4 g/dL (2.4-3.5); Glucose 69 mg/dL (70-105); Lactate Dehydrogenase 442 Units/L (140-271); Magnesium 1.8 mg/dL (1.6-2.6); Osmolality,Calculated 288 (280-300); Phosphorous 2.8 mg/dL (2.7-4.5); Potassium 4.7 mEq/L (3.5-5.1); Sodium 137 mEq/L (136-145); Total Protein 6.6 g/dL (6.4-8.9); Troponin I < 0.03 ng/mL (< 0.04); eGFR For African Americans 55 (> 60); eGFR For Non-African Americans 45 (> 60)
[2020-04-18 14:24] LABS: Ferritin 243 ng/mL (10-120)
[2020-04-18 14:38] LABS: Amorphous Sediment,Urine Few per hpf (None-Few); Bacteria,Urine Few per hpf (None-Few); Bilirubin,Urine Negative (Negative); Blood,Urine Negative (Negative); Clarity,Urine Turbid (Clear); Color,Urine Yellow (Yellow); Glucose,Urine (UA) Normal (Normal); Hyaline Casts,Urine Few per lpf (None Seen); Ketones,Urine Negative (Negative); Leukocyte Esterase,Urine Moderate (Negative); Mucus,Urine Few per lpf (None-Few); Nitrite,Urine Negative (Negative); PH,Urine 5.5 pH Units (5.0-8.0); Protein,Urine Trace mg/dL (Neg-Trace); RBC,Urine 0-3 per hpf (0-3); Specific Gravity,Urine 1.019 (1.010-1.025); Squamous Epithelial Cell,Urine Few per hpf (None-Few); Urobilinogen,Urine Normal (Normal); WBC,Urine 15-30 per hpf (0-3)
[2020-04-18] MEDS ORDERED: Azithromycin 500 MG in 0.9 % Sodium Chloride 250 ML IVPB ONE (15:00)
[2020-04-18] MEDS ORDERED: *HR* Promethazine 25 MG/ML VIAL IVP PRN (15:13)
[2020-04-18] MEDS ORDERED: Acetaminophen 325 MG TABLET PO PRN (15:13)
[2020-04-18] MEDS ORDERED: levoFLOXacin 750 MG/150 ML 750 MG/150 ML BAG IVPB SCH (15:15)
[2020-04-18] MEDS ORDERED: *HR* Dextrose 50 % in Water (Vial) 50 ML VIAL IVP PRN (15:25)
[2020-04-18] MEDS ORDERED: D5% in Water 1,000 ML IVC PRN (15:25)
[2020-04-18] MEDS ORDERED: Dextrose Gel 15 GM/37.5 ML TUBE PO PRN ×2 (15:25)
[2020-04-18] MEDS ORDERED: Vancomycin 1,250 MG/262.5 ML IV.SOLN IVPB SCH (16:00)
[2020-04-18] MEDS: *HR* Enoxaparin 40 MG/0.4 ML SYRINGE SQ SCH (17:54)
[2020-04-18] MEDS: Dexamethasone 4 MG/ML VIAL IVP SCH (17:55)
[2020-04-18] MEDS ORDERED: Aminoglycoside Consult 1 EACH MC ONE (18:00)
[2020-04-18] MEDS: Insulin LISPRO 300 UNITS/3 ML VIAL SQ SCH ×2 (18:02→19:40)
[2020-04-18] MEDS: Insulin DETEMIR 100 UNIT/ML X5UNITS SQ SCH (19:41)
[2020-04-18] MEDS: Mirtazapine 15 MG TABLET PO SCH (20:58)
[2020-04-18] MEDS: risperiDONE 0.25 MG TABLET PO SCH (20:58)
[2020-04-18] MEDS: rOPINIRole 0.25 MG TABLET PO SCH (20:58)
[2020-04-18] MEDS ORDERED: Insulin DETEMIR 100 UNIT/ML X5UNITS SQ SCH (21:00)
[2020-04-19] MEDS: *HR* Enoxaparin 40 MG/0.4 ML SYRINGE SQ SCH (06:06)
[2020-04-19 07:16] LABS: Hematocrit 30.7 % (35.3-44.9); Hemoglobin 9.8 g/dL (11.5-15.4); Mean Corpuscular HGB Conc 31.9 g/dL (31.6-35.5); Mean Corpuscular Hemoglobin 29.8 pg (28.0-33.3); Mean Corpuscular Volume 93.3 fL (83.0-100.0); Mean Platelet Volume 10.9 fL (9.4-12.4); Platelet Count 454 K/mcL (140-400); Red Blood Count 3.29 M/mcL (3.82-4.97); White Blood Count 14.6 K/mcL (4.3-11.1)
[2020-04-19] MEDS: Dexamethasone 4 MG/ML VIAL IVP SCH (07:28)
[2020-04-19] MEDS: Aspirin Enteric Coated 81 MG Tablet PO SCH (07:28)
[2020-04-19] MEDS: rOPINIRole 0.25 MG TABLET PO SCH ×2 (07:30→20:44)
[2020-04-19 07:37] LABS: Alanine Aminotransferase 39 Units/L (7-52); Albumin/Globulin Ratio 0.9 (1.1-2.2); Alkaline Phosphatase 103 Units/L (34-104); Aspartate Amino Transferase 45 Units/L (13-39); BUN/Creatinine Ratio 31 (6-26); Bilirubin,Total 0.7 mg/dL (0.3-1.0); Blood Urea Nitrogen 25 mg/dL (8-23); Calcium 8.7 mg/dL (8.6-10.3); Carbon Dioxide 19 mEq/L (23-29); Chloride 105 mEq/L (98-107); Globulin 3.4 g/dL (2.4-3.5); Glucose 311 mg/dL (70-105); Magnesium 1.7 mg/dL (1.6-2.6); Osmolality,Calculated 296 (280-300); Phosphorous 3.2 mg/dL (2.7-4.5); Potassium 5.4 mEq/L (3.5-5.1); Sodium 135 mEq/L (136-145); Total Protein 6.4 g/dL (6.4-8.9); eGFR For African Americans > 60 (> 60); eGFR For Non-African Americans > 60 (> 60)
[2020-04-19] MEDS: Insulin LISPRO 300 UNITS/3 ML VIAL SQ SCH ×4 (07:59→21:43)
[2020-04-19] MEDS: Insulin DETEMIR 100 UNIT/ML X5UNITS SQ SCH ×2 (08:12→20:45)
[2020-04-19] MEDS ORDERED: Insulin DETEMIR 100 UNIT/ML X5UNITS SQ SCH (09:00)
[2020-04-19] MEDS ORDERED: Isovue-370 500 ML BOTTLE IVP ONE (10:47)
[2020-04-19] MEDS: atenoloL 50 MG TABLET PO SCH ×2 (12:47→20:44)
[2020-04-19] MEDS ORDERED: levoFLOXacin 750 MG/150 ML 750 MG/150 ML BAG IVPB SCH (18:00)
[2020-04-19] MEDS: hydrALAZINE 25 MG TABLET PO SCH ×2 (18:17→23:03)
[2020-04-19] MEDS: risperiDONE 0.25 MG TABLET PO SCH (20:44)
[2020-04-19] MEDS: Mirtazapine 15 MG TABLET PO SCH (20:44)
[2020-04-19] MEDS ORDERED: *HR* LORazepam 2 MG/ML VIAL IVP ONE (22:40)
[2020-04-19 23:28] LABS: ABG Base Excess -4 mEq/L (-2 to 3); ABG HCO3 19 mEq/L (21-27); ABG Oxygen Saturation 94 % (95-98); ABG PCO2 29 mmHg (35-45); ABG PH 7.43 pH Units (7.32-7.45); ABG PO2 67 mmHg (85-104); ABG TCO2 20 mEq/L (20-26)
[2020-04-20] MEDS ORDERED: *HR* LORazepam 2 MG/ML VIAL IVP ONE (04:38)
[2020-04-20 04:39] LABS: Mean Platelet Volume 10.6 fL (9.4-12.4)
[2020-04-20 04:41] LABS: Hematocrit 32.1 % (35.3-44.9); Hemoglobin 10.3 g/dL (11.5-15.4); Mean Corpuscular HGB Conc 32.1 g/dL (31.6-35.5); Mean Corpuscular Hemoglobin 29.9 pg (28.0-33.3); Mean Corpuscular Volume 93.3 fL (83.0-100.0); Platelet Count 457 K/mcL (140-400); Red Blood Count 3.44 M/mcL (3.82-4.97); Red Cell Distribution Width 12.7 % (11.5-14.5)
[2020-04-20 04:44] LABS: White Blood Count 34.3 K/mcL (4.3-11.1)
[2020-04-20] MEDS: *HR* Enoxaparin 40 MG/0.4 ML SYRINGE SQ SCH (04:47)
[2020-04-20 04:55] LABS: BUN/Creatinine Ratio 35 (6-26); Blood Urea Nitrogen 25 mg/dL (8-23); Calcium 9.1 mg/dL (8.6-10.3); Carbon Dioxide 20 mEq/L (23-29); Chloride 104 mEq/L (98-107); Glucose 194 mg/dL (70-105); Osmolality,Calculated 292 (280-300); Potassium 4.6 mEq/L (3.5-5.1); Sodium 136 mEq/L (136-145); eGFR For African Americans > 60 (> 60); eGFR For Non-African Americans > 60 (> 60)
[2020-04-20] MEDS ORDERED: *HR* Heparin 5,000 UNIT/ML VIAL IVP PRN ×2 (07:37)
[2020-04-20] MEDS ORDERED: *HR* Heparin 5,000 UNIT/ML VIAL IVP ONE (07:37)
[2020-04-20] MEDS: atenoloL 50 MG TABLET PO SCH ×2 (08:17→21:28)
[2020-04-20] MEDS: Aspirin Enteric Coated 81 MG Tablet PO SCH (08:17)
[2020-04-20] MEDS: rOPINIRole 0.25 MG TABLET PO SCH ×2 (08:17→21:27)
[2020-04-20] MEDS: hydrALAZINE 25 MG TABLET PO SCH ×3 (08:17→23:17)
[2020-04-20] MEDS: Dexamethasone 4 MG/ML VIAL IVP SCH (08:18)
[2020-04-20] MEDS: Insulin LISPRO 300 UNITS/3 ML VIAL SQ SCH ×4 (08:21→21:39)
[2020-04-20] MEDS: Insulin DETEMIR 100 UNIT/ML X5UNITS SQ SCH ×2 (08:24→21:39)
[2020-04-20] MEDS ORDERED: Vancomycin 1,250 MG/262.5 ML IV.SOLN IVPB SCH (09:00)
[2020-04-20] MEDS: Aztreonam 2,000 MG in Water for inj. (sterile) 20 ML IVP SCH ×3 (09:55→23:17)
[2020-04-20] MEDS ORDERED: Haloperidol Lactate 5 MG/ML VIAL IVP ONE (10:00)
[2020-04-20 10:14] LABS: Heparin anti-factor XA UFH 0.18 IU/mL (0.30-0.70)
[2020-04-20 10:15] LABS: INR 1.3; Prothrombin Time 14.5 Seconds (9.4-12.1)
[2020-04-20] MEDS ORDERED: Aminoglycoside Consult 1 EACH MC ONE (10:58)
[2020-04-20] MEDS ORDERED: Dexmedetomidine HCl 400 MCG/100 ML MLS IVC SCH (11:45)
[2020-04-20] MEDS: Heparin 25,000 UNIT/250 ML D5W 25,000 UNIT/250 ML IV.SOLN IVC SCH (12:55)
[2020-04-20] MEDS ORDERED: Furosemide 20 MG/2 ML VIAL IVP ONE (13:28)
[2020-04-20 14:47] LABS: Hemoglobin 9.6 g/dL (11.5-15.4)
[2020-04-20 14:49] LABS: Hematocrit 29.2 % (35.3-44.9); Mean Corpuscular HGB Conc 32.9 g/dL (31.6-35.5); Mean Corpuscular Hemoglobin 30.7 pg (28.0-33.3); Mean Corpuscular Volume 93.3 fL (83.0-100.0); Mean Platelet Volume 10.3 fL (9.4-12.4); Platelet Count 368 K/mcL (140-400); Red Blood Count 3.13 M/mcL (3.82-4.97); Red Cell Distribution Width 12.8 % (11.5-14.5); White Blood Count 25.3 K/mcL (4.3-11.1)
[2020-04-20 15:09] LABS: Albumin 3.1 g/dL (3.5-5.7); Albumin/Globulin Ratio 0.9 (1.1-2.2); Bilirubin,Direct 0.2 mg/dL (0.0-0.2); Bilirubin,Indirect 0.3 mg/dL (0.0-1.0); Bilirubin,Total 0.5 mg/dL (0.3-1.0); Globulin 3.3 g/dL (2.4-3.5); Total Protein 6.4 g/dL (6.4-8.9)
[2020-04-20] MEDS: levoFLOXacin 750 MG/150 ML 750 MG/150 ML BAG IVPB SCH (17:21)
[2020-04-20] MEDS: risperiDONE 0.25 MG TABLET PO SCH (21:27)
[2020-04-20] MEDS: Mirtazapine 15 MG TABLET PO SCH (21:28)
[2020-04-21 01:23] LABS: Hematocrit 28.4 % (35.3-44.9); Hemoglobin 9.3 g/dL (11.5-15.4); Mean Corpuscular HGB Conc 32.7 g/dL (31.6-35.5); Mean Corpuscular Hemoglobin 30.1 pg (28.0-33.3); Mean Corpuscular Volume 91.9 fL (83.0-100.0); Mean Platelet Volume 10.2 fL (9.4-12.4); Platelet Count 380 K/mcL (140-400); Red Blood Count 3.09 M/mcL (3.82-4.97); White Blood Count 22.4 K/mcL (4.3-11.1)
[2020-04-21 01:39] LABS: BUN/Creatinine Ratio 41 (6-26); Blood Urea Nitrogen 33 mg/dL (8-23); Calcium 8.5 mg/dL (8.6-10.3); Carbon Dioxide 20 mEq/L (23-29); Chloride 106 mEq/L (98-107); Glucose 204 mg/dL (70-105); Osmolality,Calculated 295 (280-300); Potassium 4.3 mEq/L (3.5-5.1); Sodium 136 mEq/L (136-145); eGFR For African Americans > 60 (> 60); eGFR For Non-African Americans > 60 (> 60)
[2020-04-21] MEDS: hydrALAZINE 25 MG TABLET PO SCH ×2 (09:14→16:28)
[2020-04-21] MEDS: rOPINIRole 0.25 MG TABLET PO SCH ×2 (09:14→22:03)
[2020-04-21] MEDS: Aspirin Enteric Coated 81 MG Tablet PO SCH (09:14)
[2020-04-21] MEDS: atenoloL 50 MG TABLET PO SCH ×2 (09:15→22:04)
[2020-04-21] MEDS: Dexamethasone 4 MG/ML VIAL IVP SCH (09:15)
[2020-04-21] MEDS: Insulin LISPRO 300 UNITS/3 ML VIAL SQ SCH ×4 (09:16→22:05)
[2020-04-21] MEDS: Heparin 25,000 UNIT/250 ML D5W 25,000 UNIT/250 ML IV.SOLN IVC SCH (10:57)
[2020-04-21] MEDS: Aztreonam 2,000 MG in Water for inj. (sterile) 20 ML IVP SCH ×2 (10:59→16:28)
[2020-04-21] MEDS: Insulin DETEMIR 100 UNIT/ML X5UNITS SQ SCH ×2 (11:04→22:04)
[2020-04-21] MEDS: Furosemide 20 MG/2 ML VIAL IVP SCH (11:04)
[2020-04-21] MEDS: levoFLOXacin 750 MG/150 ML 750 MG/150 ML BAG IVPB SCH (17:59)
[2020-04-21] MEDS: Mirtazapine 15 MG TABLET PO SCH (22:04)
[2020-04-21] MEDS: risperiDONE 0.25 MG TABLET PO SCH (22:04)
[2020-04-22] MEDS: Aztreonam 2,000 MG in Water for inj. (sterile) 20 ML IVP SCH ×4 (00:28→23:29)
[2020-04-22] MEDS: hydrALAZINE 25 MG TABLET PO SCH ×4 (00:29→23:29)
[2020-04-22 00:59] LABS: Hematocrit 29.8 % (35.3-44.9); Hemoglobin 9.6 g/dL (11.5-15.4); Mean Corpuscular HGB Conc 32.2 g/dL (31.6-35.5); Mean Corpuscular Volume 93.1 fL (83.0-100.0); Mean Platelet Volume 10.5 fL (9.4-12.4); Platelet Count 451 K/mcL (140-400); White Blood Count 24.5 K/mcL (4.3-11.1)
[2020-04-22 01:08] LABS: BUN/Creatinine Ratio 51 (6-26); Blood Urea Nitrogen 37 mg/dL (8-23); Calcium 8.3 mg/dL (8.6-10.3); Carbon Dioxide 20 mEq/L (23-29); Chloride 105 mEq/L (98-107); Glucose 270 mg/dL (70-105); Osmolality,Calculated 298 (280-300); Potassium 4.5 mEq/L (3.5-5.1); Sodium 135 mEq/L (136-145); eGFR For African Americans > 60 (> 60); eGFR For Non-African Americans > 60 (> 60)
[2020-04-22] MEDS: Insulin DETEMIR 100 UNIT/ML X5UNITS SQ SCH (09:13)
[2020-04-22] MEDS: Furosemide 20 MG/2 ML VIAL IVP SCH (09:15)
[2020-04-22] MEDS: atenoloL 50 MG TABLET PO SCH ×2 (09:15→20:34)
[2020-04-22] MEDS: Aspirin Enteric Coated 81 MG Tablet PO SCH (09:15)
[2020-04-22] MEDS: rOPINIRole 0.25 MG TABLET PO SCH ×2 (09:15→20:34)
[2020-04-22] MEDS: Dexamethasone 4 MG/ML VIAL IVP SCH (09:16)
[2020-04-22] MEDS: Insulin LISPRO 300 UNITS/3 ML VIAL SQ SCH ×4 (09:37→20:34)
[2020-04-22] MEDS: Heparin 25,000 UNIT/250 ML D5W 25,000 UNIT/250 ML IV.SOLN IVC SCH (13:08)
[2020-04-22] MEDS: levoFLOXacin 750 MG/150 ML 750 MG/150 ML BAG IVPB SCH (17:13)
[2020-04-22] MEDS: risperiDONE 0.25 MG TABLET PO SCH (20:34)
[2020-04-22] MEDS: Mirtazapine 15 MG TABLET PO SCH (20:35)
[2020-04-22] MEDS ORDERED: Insulin DETEMIR 100 UNIT/ML X5UNITS SQ SCH (21:00)
[2020-04-23] MEDS: rOPINIRole 0.25 MG TABLET PO SCH (08:04)
[2020-04-23] MEDS: hydrALAZINE 25 MG TABLET PO SCH (08:04)
[2020-04-23] MEDS: Dexamethasone 4 MG/ML VIAL IVP SCH (08:05)
[2020-04-23] MEDS: Aspirin Enteric Coated 81 MG Tablet PO SCH (08:05)
[2020-04-23] MEDS: atenoloL 50 MG TABLET PO SCH (08:05)
[2020-04-23] MEDS: Furosemide 20 MG/2 ML VIAL IVP SCH (08:05)
[2020-04-23] MEDS: Aztreonam 2,000 MG in Water for inj. (sterile) 20 ML IVP SCH (08:14)
[2020-04-23] MEDS: Insulin LISPRO 300 UNITS/3 ML VIAL SQ SCH ×2 (08:23→12:00)
[2020-04-23] MEDS ORDERED: Insulin DETEMIR 100 UNIT/ML X5UNITS SQ SCH (09:00)
[2020-04-23 12:18] VITALS: BP 102/94
== END 2020-04-23 17:05 | disposition home health service (06) | DRG 871 ==
LOC: EMEROOARM 13:05 → 2NENU 13:05
PROVIDERS: ADMIT Family Medicine; ATTEND Family Medicine

== ENCOUNTER 2020-04-27 15:03 | Inpatient (IN) ==
[2020-04-27 16:13] LABS: Basophils % 0.3 %; Lymphocytes % 4.6 %; Mean Platelet Volume 11.2 fL (9.4-12.4); Red Cell Distribution Width 13.3 % (11.5-14.5)
[2020-04-27 16:15] LABS: Basophils # 0.1 K/mcL (0.0-0.2); Eosinophils # 0.2 K/mcL (0.0-0.6); Eosinophils % 0.5 %; Hematocrit 29.5 % (35.3-44.9); Hemoglobin 9.3 g/dL (11.5-15.4); Immature Granulocytes % 2.9 % (0-4); Lymphocytes # 1.7 K/mcL (0.6-4.6); Mean Corpuscular HGB Conc 31.5 g/dL (31.6-35.5); Mean Corpuscular Hemoglobin 30.3 pg (28.0-33.3); Mean Corpuscular Volume 96.1 fL (83.0-100.0); Monocytes # 2.3 K/mcL (0.0-1.3); Monocytes % 6.2 %; Platelet Count 663 K/mcL (140-400); Red Blood Count 3.07 M/mcL (3.82-4.97); Segmented Neutrophils % 85.5 %
[2020-04-27 16:20] LABS: White Blood Count 36.3 K/mcL (4.3-11.1)
[2020-04-27 16:24] LABS: INR 1.1; Prothrombin Time 12.8 Seconds (9.4-12.1)
[2020-04-27 16:42] LABS: Platelet Estimate Normal (Normal)
[2020-04-27] MEDS ORDERED: Morphine Sulfate 2 MG/ML SYRINGE IVP ONE (17:00)
[2020-04-27] MEDS ORDERED: Piperacillin/Tazobactam 3.375 GM in 0.9 % Sodium Chloride Mini Bag 100 ML IVPB ONE (17:13)
[2020-04-27 17:14] LABS: Bilirubin,Urine Negative (Negative); Blood,Urine Negative (Negative); Clarity,Urine Clear (Clear); Color,Urine Light-Yellow (Yellow); Glucose,Urine (UA) Normal (Normal); Ketones,Urine Negative (Negative); Leukocyte Esterase,Urine Negative (Negative); Nitrite,Urine Negative (Negative); Protein,Urine Negative (Neg-Trace); Specific Gravity,Urine 1.017 (1.010-1.025); Urobilinogen,Urine Normal (Normal)
[2020-04-27 17:15] LABS: BUN/Creatinine Ratio 48 (6-26); Blood Urea Nitrogen 37 mg/dL (8-23); Calcium 8.9 mg/dL (8.6-10.3); Carbon Dioxide 20 mEq/L (23-29); Chloride 102 mEq/L (98-107); Glucose 150 mg/dL (70-105); Osmolality,Calculated 292 (280-300); Potassium 5.3 mEq/L (3.5-5.1); Sodium 135 mEq/L (136-145); eGFR For African Americans > 60 (> 60); eGFR For Non-African Americans > 60 (> 60)
[2020-04-27] MEDS ORDERED: Vancomycin 1,250 MG/262.5 ML IV.SOLN IVPB ONE (17:16)
[2020-04-27] MEDS ORDERED: Naloxone 0.4 MG/ML INJ IVP PRN (17:31)
[2020-04-27] MEDS ORDERED: Cefepime HCl 2,000 MG in Water for inj. (sterile) 20 ML IVP ONE (17:32)
[2020-04-27] MEDS ORDERED: D5% in Water 1,000 ML IVC PRN (17:32)
[2020-04-27] MEDS ORDERED: *HR* Dextrose 50 % in Water (Vial) 50 ML VIAL IVP PRN (17:32)
[2020-04-27] MEDS ORDERED: Dextrose Gel 15 GM/37.5 ML TUBE PO PRN ×2 (17:32)
[2020-04-27] MEDS ORDERED: *HR* OxyCODONE/APAP 5/325 TABLET PO PRN (18:00)
[2020-04-27 18:36] LABS: Adenovirus Not Detected (Not Detect); Coronavirus 229E Not Detected (Not Detect); Coronavirus HKU1 Not Detected (Not Detect); Coronavirus NL63 Not Detected (Not Detect); Coronavirus OC43 Not Detected (Not Detect)
[2020-04-27 18:37] LABS: Bordetella Pertussis Not Detected (Not Detect); Chlamydophila pneumoniae Not Detected (Not Detect); Human Metapneumovirus Not Detected (Not Detect); Human Rhinovirus/Enterovirus Not Detected (Not Detect); Influenza A Subtype 2009 H1 Not Detected (Not Detect); Influenza B Not Detected (Not Detect); Mycoplasma pneumoniae Not Detected (Not Detect); Parainfluenza Virus 1 Not Detected (Not Detect); Parainfluenza Virus 2 Not Detected (Not Detect); Parainfluenza Virus 3 Not Detected (Not Detect); Parainfluenza Virus 4 Not Detected (Not Detect); Respiratory Syncytial Virus Not Detected (Not Detect)
[2020-04-27] MEDS ORDERED: Insulin DETEMIR 100 UNIT/ML X5UNITS SQ SCH (21:00)
[2020-04-27] MEDS: risperiDONE 0.25 MG TABLET PO SCH (23:57)
[2020-04-27] MEDS: rOPINIRole 0.25 MG TABLET PO SCH (23:58)
[2020-04-27] MEDS: Mirtazapine 15 MG TABLET PO SCH (23:59)
[2020-04-27] MEDS: atenoloL 50 MG TABLET PO SCH (23:59)
[2020-04-28 06:44] LABS: Basophils # 0.1 K/mcL (0.0-0.2); Basophils % 0.4 %; Eosinophils # 0.3 K/mcL (0.0-0.6); Hematocrit 29.3 % (35.3-44.9); Lymphocytes % 5.1 %; Mean Corpuscular HGB Conc 30.7 g/dL (31.6-35.5); Mean Corpuscular Hemoglobin 29.4 pg (28.0-33.3); Mean Corpuscular Volume 95.8 fL (83.0-100.0); Mean Platelet Volume 11.4 fL (9.4-12.4); Monocytes % 8.6 %; Neutrophils # 23.5 K/mcL (1.6-8.9); Platelet Count 482 K/mcL (140-400); Red Blood Count 3.06 M/mcL (3.82-4.97); Red Cell Distribution Width 13.5 % (11.5-14.5); Segmented Neutrophils % 82.9 %; White Blood Count 28.4 K/mcL (4.3-11.1)
[2020-04-28 06:46] LABS: Lymphocytes # 1.5 K/mcL (0.6-4.6); Monocytes # 2.4 K/mcL (0.0-1.3)
[2020-04-28] MEDS: Multivit/Ca/Min/Fe/FA 1 TAB TABLET PO SCH (07:46)
[2020-04-28] MEDS: rOPINIRole 0.25 MG TABLET PO SCH ×2 (07:46→22:36)
[2020-04-28] MEDS: atenoloL 50 MG TABLET PO SCH ×2 (07:46→22:35)
[2020-04-28] MEDS: Insulin LISPRO 300 UNITS/3 ML VIAL SQ SCH ×3 (07:47→17:13)
[2020-04-28 07:48] LABS: BUN/Creatinine Ratio 48 (6-26); Blood Urea Nitrogen 32 mg/dL (8-23); Calcium 9.2 mg/dL (8.6-10.3); Carbon Dioxide 22 mEq/L (23-29); Chloride 106 mEq/L (98-107); Glucose 209 mg/dL (70-105); Osmolality,Calculated 291 (280-300); Potassium 5.7 mEq/L (3.5-5.1); Sodium 134 mEq/L (136-145); eGFR For African Americans > 60 (> 60); eGFR For Non-African Americans > 60 (> 60)
[2020-04-28] MEDS: Insulin DETEMIR 100 UNIT/ML X5UNITS SQ SCH (07:49)
[2020-04-28] MEDS ORDERED: levoFLOXacin 750 MG TABLET PO ONE (11:55)
[2020-04-28] MEDS: *HR* Heparin 5,000 UNIT/ML VIAL SQ SCH ×2 (17:59→22:36)
[2020-04-28] MEDS ORDERED: Acetaminophen 325 MG TABLET PO ONE (20:51)
[2020-04-28] MEDS ORDERED: Insulin DETEMIR 100 UNIT/ML X5UNITS SQ SCH (21:00)
[2020-04-28] MEDS: risperiDONE 0.25 MG TABLET PO SCH (22:35)
[2020-04-28] MEDS: Mirtazapine 15 MG TABLET PO SCH (22:36)
[2020-04-29] MEDS: *HR* Heparin 5,000 UNIT/ML VIAL SQ SCH ×2 (08:00→16:53)
[2020-04-29] MEDS: Insulin LISPRO 300 UNITS/3 ML VIAL SQ SCH ×3 (08:38→21:52)
[2020-04-29] MEDS: Insulin DETEMIR 100 UNIT/ML X5UNITS SQ SCH (08:41)
[2020-04-29 08:58] LABS: Mean Platelet Volume 11.1 fL (9.4-12.4)
[2020-04-29 08:59] LABS: Hematocrit 30.3 % (35.3-44.9); Hemoglobin 9.8 g/dL (11.5-15.4); Mean Corpuscular HGB Conc 32.3 g/dL (31.6-35.5); Mean Corpuscular Hemoglobin 31.1 pg (28.0-33.3); Mean Corpuscular Volume 96.2 fL (83.0-100.0); Platelet Count 557 K/mcL (140-400); Red Blood Count 3.15 M/mcL (3.82-4.97); Red Cell Distribution Width 13.2 % (11.5-14.5); White Blood Count 28.5 K/mcL (4.3-11.1)
[2020-04-29 09:07] LABS: BUN/Creatinine Ratio 38 (6-26); Blood Urea Nitrogen 21 mg/dL (8-23); Calcium 9.1 mg/dL (8.6-10.3); Carbon Dioxide 26 mEq/L (23-29); Chloride 104 mEq/L (98-107); Glucose 79 mg/dL (70-105); Osmolality,Calculated 282 (280-300); Potassium 4.4 mEq/L (3.5-5.1); Sodium 135 mEq/L (136-145); eGFR For African Americans > 60 (> 60); eGFR For Non-African Americans > 60 (> 60)
[2020-04-29 09:30] LABS: Eosinophils # 0.6 K/mcL (0.0-0.6); Large Platelets Present (Not Present); Lymphocytes # 1.7 K/mcL (0.6-4.6); Monocytes # 1.7 K/mcL (0.0-1.3); Neutrophils # 23.9 K/mcL (1.6-8.9); Platelet Estimate Marked Increase (Normal); Toxic Granulation Present (Not Present)
[2020-04-29] MEDS ORDERED: *HR* Succinylcholine 200 MG/10 ML VIAL IVP ONE (10:24)
[2020-04-29] MEDS ORDERED: Ondansetron 4 MG/2 ML VIAL ONE (10:24)
[2020-04-29] MEDS ORDERED: *HR* Propofol 200 MG/20 ML VIAL IVP ONE (10:24)
[2020-04-29] MEDS ORDERED: Lidocaine -MPF 2% 2 ML VIAL ONE (10:24)
[2020-04-29] MEDS ORDERED: Dexamethasone 4 MG/ML VIAL ONE (10:24)
[2020-04-29] MEDS ORDERED: *HR* Rocuronium Bromide 50 MG/5 ML VIAL ONE (10:24)
[2020-04-29] MEDS ORDERED: Ethanol\\Acetic Acid\\Na Ace\\Ben 1,000 ML IRRIG.SOLN IR ONE (10:26)
[2020-04-29] MEDS ORDERED: Vancomycin 1,000 MG VIAL ONE (10:26)
[2020-04-29] MEDS ORDERED: Clindamycin 900 MG/50 ML 900 MG/50 ML IV.SOLN IVPB ONE ×2 (10:32→10:45)
[2020-04-29] MEDS: atenoloL 50 MG TABLET PO SCH (10:32)
[2020-04-29] MEDS: rOPINIRole 0.25 MG TABLET PO SCH ×2 (10:33→21:51)
[2020-04-29] MEDS: Multivit/Ca/Min/Fe/FA 1 TAB TABLET PO SCH (10:33)
[2020-04-29] MEDS ORDERED: *HR* FentaNYL (PF) 100 MCG/2 ML VIAL ONE (11:18)
[2020-04-29] MEDS ORDERED: *HR* PHENYLEPHRINE 1,000 MCG/10 ML SYRINGE IVP ONE (11:28)
[2020-04-29] MEDS ORDERED: EPHEDrine 50 MG/ML VIAL ONE (11:31)
[2020-04-29] MEDS ORDERED: *HR* Vasopressin 20 UNIT/ML VIAL ONE (11:37)
[2020-04-29] MEDS ORDERED: Tranexamic Acid 1,000 MG/10 ML VIAL ONE (11:43)
[2020-04-29] MEDS ORDERED: EPINEPHrine 1 MG/ML VIAL ONE (12:08)
[2020-04-29] MEDS ORDERED: Ondansetron 4 MG/2 ML VIAL IVP ONE (12:21)
[2020-04-29] MEDS ORDERED: *HR* HYDROmorphone PF 0.5 MG/0.5 ML SYRINGE IVP PRN (12:21)
[2020-04-29] MEDS ORDERED: Ringers Solution, Lactated 1,000 ML ONE (12:40)
[2020-04-29 13:29] LABS: Hemoglobin 8.5 g/dL (11.5-15.4)
[2020-04-29] MEDS ORDERED: D5% in Water 1,000 ML IVC PRN ×2 (13:44→20:40)
[2020-04-29] MEDS ORDERED: Dextrose Gel 15 GM/37.5 ML TUBE PO PRN ×4 (13:44→20:40)
[2020-04-29] MEDS ORDERED: *HR* Dextrose 50 % in Water (Vial) 50 ML VIAL IVP PRN ×2 (13:44→20:40)
[2020-04-29] MEDS ORDERED: Sennosides 8.6 MG TABLET PO PRN (13:46)
[2020-04-29] MEDS ORDERED: Naloxone 0.4 MG/ML INJ IVP PRN ×2 (13:46)
[2020-04-29] MEDS ORDERED: *HR* Promethazine 25 MG/ML VIAL IVP PRN (13:46)
[2020-04-29] MEDS ORDERED: Ondansetron 4 MG/2 ML VIAL IVP PRN (13:46)
[2020-04-29] MEDS ORDERED: MOM Conc 10 ML UD.LIQ PO PRN (13:46)
[2020-04-29] MEDS: Ringers Solution, Lactated 1,000 ML IVC SCH (15:14)
[2020-04-29] MEDS ORDERED: Insulin LISPRO 300 UNITS/3 ML VIAL SQ SCH (16:30)
[2020-04-29] MEDS: Clindamycin 900 MG/50 ML 900 MG/50 ML IV.SOLN IVPB SCH (16:57)
[2020-04-29] MEDS: Ascorbic Acid 500 MG TABLET PO SCH (16:57)
[2020-04-29] MEDS ORDERED: atenoloL 50 MG TABLET PO SCH (21:00)
[2020-04-29] MEDS ORDERED: Insulin DETEMIR 100 UNIT/ML X5UNITS SQ SCH (21:00)
[2020-04-29] MEDS: risperiDONE 0.25 MG TABLET PO SCH (21:51)
[2020-04-29] MEDS: Mirtazapine 15 MG TABLET PO SCH (21:52)
[2020-04-30] MEDS: Clindamycin 900 MG/50 ML 900 MG/50 ML IV.SOLN IVPB SCH (00:06)
[2020-04-30] MEDS: *HR* OxyCODONE/APAP 5/325 TABLET PO PRN (04:01)
[2020-04-30] MEDS: Ringers Solution, Lactated 1,000 ML IVC SCH (04:02)
[2020-04-30 06:04] LABS: Basophils % 0.1 %; Hemoglobin 7.3 g/dL (11.5-15.4); Red Cell Distribution Width 13.2 % (11.5-14.5)
[2020-04-30 06:05] LABS: Hematocrit 22.8 % (35.3-44.9); Immature Granulocytes % 2.6 % (0-4); Lymphocytes # 1.5 K/mcL (0.6-4.6); Lymphocytes % 4.7 %; Mean Corpuscular Hemoglobin 30.5 pg (28.0-33.3); Mean Corpuscular Volume 95.4 fL (83.0-100.0); Mean Platelet Volume 11.5 fL (9.4-12.4); Monocytes # 2.7 K/mcL (0.0-1.3); Monocytes % 8.6 %; Neutrophils # 26.2 K/mcL (1.6-8.9); Platelet Count 475 K/mcL (140-400); Red Blood Count 2.39 M/mcL (3.82-4.97)
[2020-04-30 06:07] LABS: White Blood Count 31.2 K/mcL (4.3-11.1)
[2020-04-30 06:15] LABS: BUN/Creatinine Ratio 36 (6-26); Blood Urea Nitrogen 24 mg/dL (8-23); Calcium 8.1 mg/dL (8.6-10.3); Carbon Dioxide 22 mEq/L (23-29); Chloride 101 mEq/L (98-107); Glucose 275 mg/dL (70-105); Osmolality,Calculated 286 (280-300); Potassium 4.9 mEq/L (3.5-5.1); Sodium 131 mEq/L (136-145); eGFR For African Americans > 60 (> 60); eGFR For Non-African Americans > 60 (> 60)
[2020-04-30 06:16] LABS: Platelet Estimate Increased (Normal)
[2020-04-30] MEDS: Ascorbic Acid 500 MG TABLET PO SCH ×2 (08:54→17:36)
[2020-04-30] MEDS: Multivit/Ca/Min/Fe/FA 1 TAB TABLET PO SCH (08:54)
[2020-04-30] MEDS: rOPINIRole 0.25 MG TABLET PO SCH ×2 (08:55→21:40)
[2020-04-30] MEDS: Insulin LISPRO 300 UNITS/3 ML VIAL SQ SCH ×4 (08:55→21:39)
[2020-04-30] MEDS ORDERED: Multivit/Ca/Min/Fe/FA 1 TAB TABLET PO SCH (09:00)
[2020-04-30] MEDS ORDERED: Insulin DETEMIR 100 UNIT/ML X5UNITS SQ SCH ×2 (09:00)
[2020-04-30 12:09] LABS: Bilirubin,Urine Negative (Negative); Blood,Urine Negative (Negative); Budding Yeast,Urine Few per hpf (None Seen); Clarity,Urine Clear (Clear); Color,Urine Light-Yellow (Yellow); Glucose,Urine (UA) >=1000 mg/dL (Normal); Ketones,Urine Trace mg/dL (Negative); Leukocyte Esterase,Urine Negative (Negative); Mucus,Urine Few per lpf (None-Few); Nitrite,Urine Negative (Negative); Protein,Urine Negative (Neg-Trace); RBC,Urine 0-3 per hpf (0-3); Specific Gravity,Urine 1.024 (1.010-1.025); Squamous Epithelial Cell,Urine Few per hpf (None-Few); Urobilinogen,Urine Normal (Normal)
[2020-04-30 12:45] LABS: INR 1.3; Prothrombin Time 14.6 Seconds (9.4-12.1)
[2020-04-30] MEDS ORDERED: 0.9 % Sodium Chloride 250 ML IVC ONE ×2 (12:52→17:32)
[2020-04-30] MEDS: *HR* Heparin 5,000 UNIT/ML VIAL SQ SCH ×2 (15:35→21:40)
[2020-04-30] MEDS: Cefepime HCl 2,000 MG in Water for inj. (sterile) 20 ML IVP SCH (18:58)
[2020-04-30] MEDS: Insulin DETEMIR 100 UNIT/ML X5UNITS SQ SCH (21:39)
[2020-04-30] MEDS: Mirtazapine 15 MG TABLET PO SCH (21:40)
[2020-04-30] MEDS: risperiDONE 0.25 MG TABLET PO SCH (21:40)
[2020-04-30 22:48] LABS: Hemoglobin 9.3 g/dL (11.5-15.4)
[2020-05-01] MEDS ORDERED: Cefepime HCl 2,000 MG in Water for inj. (sterile) 20 ML IVP SCH
[2020-05-01] MEDS: Cefepime HCl 2,000 MG in Water for inj. (sterile) 20 ML IVP SCH ×3 (04:47→15:27)
[2020-05-01 04:53] LABS: Hematocrit 33.6 % (35.3-44.9); Hemoglobin 10.5 g/dL (11.5-15.4); Mean Corpuscular HGB Conc 31.3 g/dL (31.6-35.5); Mean Corpuscular Hemoglobin 28.9 pg (28.0-33.3); Mean Corpuscular Volume 92.6 fL (83.0-100.0); Mean Platelet Volume 10.5 fL (9.4-12.4); Platelet Count 565 K/mcL (140-400); Red Blood Count 3.63 M/mcL (3.82-4.97); Red Cell Distribution Width 14.8 % (11.5-14.5); White Blood Count 25.7 K/mcL (4.3-11.1)
[2020-05-01 05:11] LABS: BUN/Creatinine Ratio 35 (6-26); Blood Urea Nitrogen 17 mg/dL (8-23); Calcium 8.5 mg/dL (8.6-10.3); Carbon Dioxide 23 mEq/L (23-29); Chloride 100 mEq/L (98-107); Glucose 209 mg/dL (70-105); Osmolality,Calculated 282 (280-300); Potassium 4.5 mEq/L (3.5-5.1); Sodium 132 mEq/L (136-145); eGFR For African Americans > 60 (> 60); eGFR For Non-African Americans > 60 (> 60)
[2020-05-01 05:24] LABS: Lymphocytes # 0.5 K/mcL (0.6-4.6); Monocytes # 1.5 K/mcL (0.0-1.3); Neutrophils # 23.6 K/mcL (1.6-8.9)
[2020-05-01 05:25] LABS: Platelet Estimate Increased (Normal)
[2020-05-01] MEDS: *HR* Heparin 5,000 UNIT/ML VIAL SQ SCH ×3 (06:35→23:07)
[2020-05-01] MEDS: Insulin LISPRO 300 UNITS/3 ML VIAL SQ SCH ×4 (07:48→23:21)
[2020-05-01] MEDS: Multivit/Ca/Min/Fe/FA 1 TAB TABLET PO SCH (07:48)
[2020-05-01] MEDS: rOPINIRole 0.25 MG TABLET PO SCH ×2 (07:48→23:05)
[2020-05-01] MEDS: Ascorbic Acid 500 MG TABLET PO SCH ×2 (07:48→16:52)
[2020-05-01] MEDS: Insulin DETEMIR 100 UNIT/ML X5UNITS SQ SCH ×2 (08:18→23:38)
[2020-05-01 08:47] LABS: Hemoglobin 10.7 g/dL (11.5-15.4)
[2020-05-01 11:23] LABS: Hematocrit 31.8 % (35.3-44.9); Hemoglobin 10.6 g/dL (11.5-15.4)
[2020-05-01] MEDS: Ringers Solution, Lactated 1,000 ML IVC SCH (12:30)
[2020-05-01] MEDS: atenoloL 50 MG TABLET PO SCH ×2 (12:32→23:06)
[2020-05-01 15:17] LABS: Hematocrit 31.5 % (35.3-44.9); Hemoglobin 10.5 g/dL (11.5-15.4)
[2020-05-01] MEDS: *HR* OxyCODONE/APAP 5/325 TABLET PO PRN (23:06)
[2020-05-01] MEDS: risperiDONE 0.25 MG TABLET PO SCH (23:06)
[2020-05-01] MEDS: Mirtazapine 15 MG TABLET PO SCH (23:06)
[2020-05-02] MEDS: Cefepime HCl 2,000 MG in Water for inj. (sterile) 20 ML IVP SCH ×2 (01:11→09:29)
[2020-05-02] MEDS: Ringers Solution, Lactated 1,000 ML IVC SCH (01:13)
[2020-05-02 03:59] LABS: Basophils # 0.1 K/mcL (0.0-0.2); Basophils % 0.5 %; Eosinophils # 0.7 K/mcL (0.0-0.6); Eosinophils % 2.9 %; Hematocrit 30.2 % (35.3-44.9); Immature Granulocytes % 1.9 % (0-4); Lymphocytes # 2.4 K/mcL (0.6-4.6); Lymphocytes % 10.3 %; Mean Corpuscular HGB Conc 33.1 g/dL (31.6-35.5); Mean Corpuscular Volume 90.7 fL (83.0-100.0); Monocytes # 2.2 K/mcL (0.0-1.3); Monocytes % 9.5 %; Neutrophils # 17.3 K/mcL (1.6-8.9); Nucleated Red Blood Cells 0.1 /100 WBC (0); Platelet Count 573 K/mcL (140-400); Red Blood Count 3.33 M/mcL (3.82-4.97); Red Cell Distribution Width 14.5 % (11.5-14.5); Segmented Neutrophils % 74.9 %; White Blood Count 23.1 K/mcL (4.3-11.1)
[2020-05-02 04:21] LABS: BUN/Creatinine Ratio 35 (6-26); Blood Urea Nitrogen 16 mg/dL (8-23); Carbon Dioxide 25 mEq/L (23-29); Chloride 103 mEq/L (98-107); Glucose 199 mg/dL (70-105); Osmolality,Calculated 285 (280-300); Potassium 4.4 mEq/L (3.5-5.1); Sodium 134 mEq/L (136-145); eGFR For African Americans > 60 (> 60); eGFR For Non-African Americans > 60 (> 60)
[2020-05-02] MEDS: *HR* Heparin 5,000 UNIT/ML VIAL SQ SCH ×3 (08:23→22:12)
[2020-05-02] MEDS: Insulin LISPRO 300 UNITS/3 ML VIAL SQ SCH ×4 (08:23→22:11)
[2020-05-02] MEDS: Multivit/Ca/Min/Fe/FA 1 TAB TABLET PO SCH (09:30)
[2020-05-02] MEDS: atenoloL 50 MG TABLET PO SCH ×2 (09:30→22:12)
[2020-05-02] MEDS: Ascorbic Acid 500 MG TABLET PO SCH ×2 (09:30→17:04)
[2020-05-02] MEDS: rOPINIRole 0.25 MG TABLET PO SCH ×2 (09:30→22:11)
[2020-05-02] MEDS: Insulin DETEMIR 100 UNIT/ML X5UNITS SQ SCH ×2 (09:35→22:11)
[2020-05-02 09:57] LABS: C-Reactive Protein 68 mg/L (Less than 10)
[2020-05-02] MEDS ORDERED: levoFLOXacin 750 MG/150 ML 750 MG/150 ML BAG IVPB SCH (13:45)
[2020-05-02] MEDS: risperiDONE 0.25 MG TABLET PO SCH (22:11)
[2020-05-02] MEDS: Mirtazapine 15 MG TABLET PO SCH (22:11)
[2020-05-03] MEDS: *HR* Heparin 5,000 UNIT/ML VIAL SQ SCH ×3 (05:23→21:16)
[2020-05-03 06:19] LABS: Basophils # 0.2 K/mcL (0.0-0.2); Basophils % 0.7 %; Eosinophils # 0.7 K/mcL (0.0-0.6); Hematocrit 34.6 % (35.3-44.9); Hemoglobin 10.5 g/dL (11.5-15.4); Immature Granulocytes % 1.5 % (0-4); Lymphocytes # 1.8 K/mcL (0.6-4.6); Lymphocytes % 8.3 %; Mean Corpuscular HGB Conc 30.3 g/dL (31.6-35.5); Mean Corpuscular Hemoglobin 29.2 pg (28.0-33.3); Mean Corpuscular Volume 96.4 fL (83.0-100.0); Mean Platelet Volume 10.5 fL (9.4-12.4); Monocytes # 1.7 K/mcL (0.0-1.3); Monocytes % 7.5 %; Neutrophils # 17.5 K/mcL (1.6-8.9); Nucleated Red Blood Cells 0.1 /100 WBC (0); Platelet Count 485 K/mcL (140-400); Red Blood Count 3.59 M/mcL (3.82-4.97); Red Cell Distribution Width 14.1 % (11.5-14.5); White Blood Count 22.2 K/mcL (4.3-11.1)
[2020-05-03 07:41] LABS: BUN/Creatinine Ratio 34 (6-26); Blood Urea Nitrogen 16 mg/dL (8-23); Calcium 8.4 mg/dL (8.6-10.3); Carbon Dioxide 24 mEq/L (23-29); Chloride 103 mEq/L (98-107); Glucose 234 mg/dL (70-105); Osmolality,Calculated 287 (280-300); Potassium 4.7 mEq/L (3.5-5.1); Sodium 134 mEq/L (136-145); eGFR For African Americans > 60 (> 60); eGFR For Non-African Americans > 60 (> 60)
[2020-05-03] MEDS: Ascorbic Acid 500 MG TABLET PO SCH ×2 (10:10→16:25)
[2020-05-03] MEDS: rOPINIRole 0.25 MG TABLET PO SCH ×2 (10:10→21:11)
[2020-05-03] MEDS: atenoloL 50 MG TABLET PO SCH ×2 (10:10→21:16)
[2020-05-03] MEDS: Multivit/Ca/Min/Fe/FA 1 TAB TABLET PO SCH (10:10)
[2020-05-03] MEDS: Insulin LISPRO 300 UNITS/3 ML VIAL SQ SCH ×4 (10:11→21:20)
[2020-05-03] MEDS: *HR* OxyCODONE/APAP 5/325 TABLET PO PRN ×2 (10:11→21:16)
[2020-05-03] MEDS: Insulin DETEMIR 100 UNIT/ML X5UNITS SQ SCH ×2 (10:13→21:20)
[2020-05-03 11:14] LABS: Mycoplasma pneumoniae IgG 0.49 U/L (<=0.09)
[2020-05-03 12:27] LABS: C-Reactive Protein 45 mg/L (Less than 10)
[2020-05-03] MEDS: levoFLOXacin 750 MG/150 ML 750 MG/150 ML BAG IVPB SCH (16:32)
[2020-05-03] MEDS: risperiDONE 0.25 MG TABLET PO SCH (21:07)
[2020-05-03] MEDS: Mirtazapine 15 MG TABLET PO SCH (21:12)
[2020-05-04] MEDS: *HR* Heparin 5,000 UNIT/ML VIAL SQ SCH ×3 (05:37→22:25)
[2020-05-04 06:37] LABS: Basophils # 0.1 K/mcL (0.0-0.2); Basophils % 0.6 %; Eosinophils # 0.7 K/mcL (0.0-0.6); Eosinophils % 3.5 %; Hemoglobin 9.9 g/dL (11.5-15.4); Immature Granulocytes % 1.3 % (0-4); Lymphocytes # 1.9 K/mcL (0.6-4.6); Lymphocytes % 9.1 %; Mean Corpuscular HGB Conc 31.9 g/dL (31.6-35.5); Mean Corpuscular Hemoglobin 30.6 pg (28.0-33.3); Mean Corpuscular Volume 95.7 fL (83.0-100.0); Mean Platelet Volume 10.5 fL (9.4-12.4); Monocytes # 1.4 K/mcL (0.0-1.3); Monocytes % 6.8 %; Neutrophils # 16.8 K/mcL (1.6-8.9); Platelet Count 486 K/mcL (140-400); Red Blood Count 3.24 M/mcL (3.82-4.97); Segmented Neutrophils % 78.7 %; White Blood Count 21.3 K/mcL (4.3-11.1)
[2020-05-04 06:53] LABS: BUN/Creatinine Ratio 39 (6-26); Blood Urea Nitrogen 18 mg/dL (8-23); Calcium 8.2 mg/dL (8.6-10.3); Carbon Dioxide 23 mEq/L (23-29); Chloride 102 mEq/L (98-107); Glucose 252 mg/dL (70-105); Osmolality,Calculated 284 (280-300); Sodium 132 mEq/L (136-145); eGFR For African Americans > 60 (> 60); eGFR For Non-African Americans > 60 (> 60)
[2020-05-04] MEDS: atenoloL 50 MG TABLET PO SCH ×2 (07:44→22:25)
[2020-05-04] MEDS: rOPINIRole 0.25 MG TABLET PO SCH ×2 (07:44→22:25)
[2020-05-04] MEDS: Insulin LISPRO 300 UNITS/3 ML VIAL SQ SCH ×4 (07:44→22:26)
[2020-05-04] MEDS: Multivit/Ca/Min/Fe/FA 1 TAB TABLET PO SCH (07:44)
[2020-05-04] MEDS: Ascorbic Acid 500 MG TABLET PO SCH ×2 (07:44→15:51)
[2020-05-04] MEDS: Insulin DETEMIR 100 UNIT/ML X5UNITS SQ SCH ×2 (07:45→22:26)
[2020-05-04] MEDS: *HR* OxyCODONE/APAP 5/325 TABLET PO PRN ×2 (08:07→22:51)
[2020-05-04] MEDS ORDERED: Fluconazole 150 MG TABLET PO ONE (08:17)
[2020-05-04] MEDS: Nystatin POWDER 30 GM BOTTLE TP SCH ×3 (09:39→22:27)
[2020-05-04] MEDS: polyethylene glycoL 3350 17 GM POWD.PACK PO SCH (10:54)
[2020-05-04 14:26] LABS: Adenovirus Not Detected (Not Detect); Bordetella Pertussis Not Detected (Not Detect); Chlamydophila pneumoniae Not Detected (Not Detect); Coronavirus 229E Not Detected (Not Detect); Coronavirus HKU1 Not Detected (Not Detect); Coronavirus NL63 Not Detected (Not Detect); Coronavirus OC43 Not Detected (Not Detect); Human Metapneumovirus Not Detected (Not Detect); Human Rhinovirus/Enterovirus Not Detected (Not Detect); Influenza A Subtype 2009 H1 Not Detected (Not Detect); Influenza B Not Detected (Not Detect); Mycoplasma pneumoniae Not Detected (Not Detect); Parainfluenza Virus 1 Not Detected (Not Detect); Parainfluenza Virus 2 Not Detected (Not Detect); Parainfluenza Virus 3 Not Detected (Not Detect); Parainfluenza Virus 4 Not Detected (Not Detect); Respiratory Syncytial Virus Not Detected (Not Detect)
[2020-05-04] MEDS: levoFLOXacin 750 MG/150 ML 750 MG/150 ML BAG IVPB SCH (15:55)
[2020-05-04] MEDS: risperiDONE 0.25 MG TABLET PO SCH (22:24)
[2020-05-04] MEDS: Mirtazapine 15 MG TABLET PO SCH (22:25)
[2020-05-05] MEDS: *HR* OxyCODONE/APAP 5/325 TABLET PO PRN (03:34)
[2020-05-05 05:25] LABS: Basophils # 0.1 K/mcL (0.0-0.2); Basophils % 0.5 %; Eosinophils # 0.9 K/mcL (0.0-0.6); Eosinophils % 4.7 %; Hematocrit 32.8 % (35.3-44.9); Hemoglobin 10.3 g/dL (11.5-15.4); Immature Granulocytes % 0.9 % (0-4); Lymphocytes # 2.4 K/mcL (0.6-4.6); Lymphocytes % 12.5 %; Mean Corpuscular HGB Conc 31.4 g/dL (31.6-35.5); Mean Corpuscular Hemoglobin 29.6 pg (28.0-33.3); Mean Corpuscular Volume 94.3 fL (83.0-100.0); Mean Platelet Volume 9.9 fL (9.4-12.4); Monocytes # 1.3 K/mcL (0.0-1.3); Monocytes % 7.1 %; Neutrophils # 13.9 K/mcL (1.6-8.9); Platelet Count 521 K/mcL (140-400); Red Blood Count 3.48 M/mcL (3.82-4.97); Red Cell Distribution Width 13.7 % (11.5-14.5); Segmented Neutrophils % 74.3 %; White Blood Count 18.8 K/mcL (4.3-11.1)
[2020-05-05 05:40] LABS: BUN/Creatinine Ratio 38 (6-26); Blood Urea Nitrogen 21 mg/dL (8-23); Calcium 8.4 mg/dL (8.6-10.3); Carbon Dioxide 26 mEq/L (23-29); Chloride 101 mEq/L (98-107); Glucose 241 mg/dL (70-105); Osmolality,Calculated 287 (280-300); Potassium 4.7 mEq/L (3.5-5.1); Sodium 133 mEq/L (136-145); eGFR For African Americans > 60 (> 60); eGFR For Non-African Americans > 60 (> 60)
[2020-05-05] MEDS: *HR* Heparin 5,000 UNIT/ML VIAL SQ SCH ×2 (06:08→13:16)
[2020-05-05 07:13] VITALS: BP 145/65
[2020-05-05] MEDS: polyethylene glycoL 3350 17 GM POWD.PACK PO SCH (08:55)
[2020-05-05] MEDS: Ascorbic Acid 500 MG TABLET PO SCH (08:55)
[2020-05-05] MEDS: atenoloL 50 MG TABLET PO SCH (08:55)
[2020-05-05] MEDS: rOPINIRole 0.25 MG TABLET PO SCH (08:55)
[2020-05-05] MEDS: Multivit/Ca/Min/Fe/FA 1 TAB TABLET PO SCH (08:55)
[2020-05-05] MEDS: Insulin DETEMIR 100 UNIT/ML X5UNITS SQ SCH (09:02)
[2020-05-05] MEDS: Insulin LISPRO 300 UNITS/3 ML VIAL SQ SCH ×2 (09:02→13:16)
[2020-05-05] MEDS: Nystatin POWDER 30 GM BOTTLE TP SCH (09:03)
== END 2020-05-05 15:32 | DRG 956 ==
LOC: EMEROOARM 15:03 → 3ANU 19:32 → SUATTDRO 19:32 → 3ANU 20:11
PROVIDERS: ADMIT Internal Medicine; ATTEND Internal Medicine

== ENCOUNTER 2020-06-19 03:29 | Inpatient (IN) ==
[2020-06-19] MEDS ORDERED: 0.9 % Sodium Chloride 500 ML IV ONE (03:44)
[2020-06-19] MEDS ORDERED: Isovue-370 500 ML BOTTLE IVP ONE (03:45)
[2020-06-19 04:34] LABS: Basophils % 0.3 %; Eosinophils % 0.3 %; Red Cell Distribution Width 14.2 % (11.5-14.5)
[2020-06-19 04:35] LABS: Bacteria,Urine Moderate per hpf (None-Few); Basophils # 0.1 K/mcL (0.0-0.2); Bilirubin,Urine Negative (Negative); Blood,Urine Moderate (Negative); Clarity,Urine Ex.Turbid (Clear); Color,Urine Yellow (Yellow); Eosinophils # 0.1 K/mcL (0.0-0.6); Glucose,Urine (UA) Normal (Normal); Hematocrit 27.7 % (35.3-44.9); Hemoglobin 8.5 g/dL (11.5-15.4); Ketones,Urine Trace mg/dL (Negative); Leukocyte Esterase,Urine Large (Negative); Lymphocytes # 2.4 K/mcL (0.6-4.6); Lymphocytes % 7.8 %; Mean Corpuscular HGB Conc 30.7 g/dL (31.6-35.5); Mean Corpuscular Hemoglobin 28.2 pg (28.0-33.3); Mean Platelet Volume 10.2 fL (9.4-12.4); Monocytes # 2.3 K/mcL (0.0-1.3); Monocytes % 7.3 %; Neutrophils # 25.7 K/mcL (1.6-8.9); Nitrite,Urine Negative (Negative); PH,Urine 6.5 pH Units (5.0-8.0); Platelet Count 876 K/mcL (140-400); Protein,Urine 100 mg/dL (Neg-Trace); RBC,Urine 15-30 per hpf (0-3); Red Blood Count 3.01 M/mcL (3.82-4.97); Segmented Neutrophils % 82.3 %; Specific Gravity,Urine 1.012 (1.010-1.025); Urobilinogen,Urine Normal (Normal); WBC,Urine TNTC per hpf (0-3)
[2020-06-19 04:40] LABS: Albumin 2.7 g/dL (3.5-5.7); Albumin/Globulin Ratio 0.7 (1.1-2.2); Bilirubin,Direct 0.2 mg/dL (0.0-0.2); Bilirubin,Indirect 0.2 mg/dL (0.0-1.0); Bilirubin,Total 0.4 mg/dL (0.3-1.0); Calcium 8.8 mg/dL (8.6-10.3); Total Protein 6.7 g/dL (6.4-8.9); White Blood Count 31.2 K/mcL (4.3-11.1)
[2020-06-19] MEDS ORDERED: Calcium Gluconate 1gm/50mL 1 GM/50 ML BAG IVPB ONE (04:59)
[2020-06-19] MEDS ORDERED: *HR* Dextrose 50 % in Water (Vial) 50 ML VIAL IVP ONE (04:59)
[2020-06-19] MEDS ORDERED: Insulin Human Regular 10 UNIT in 0.9 % Sodium Chloride 10 ML IV ONE (05:00)
[2020-06-19 05:04] LABS: Platelet Estimate Increased (Normal)
[2020-06-19] MEDS ORDERED: Cefepime HCl 1,000 MG in 0.9 % Sodium Chloride Mini Bag 100 ML IVPB ONE (06:11)
[2020-06-19] MEDS ORDERED: Naloxone 0.4 MG/ML INJ IVP PRN (06:40)
[2020-06-19] MEDS ORDERED: *HR* OxyCODONE Immed Rel 5 MG TABLET PO PRN (08:28)
[2020-06-19] MEDS ORDERED: *HR* HYDROcodone/Acet 5/325 mg TABLET PO PRN (08:28)
[2020-06-19] MEDS ORDERED: Acetaminophen 325 MG TABLET PO PRN (08:28)
[2020-06-19] MEDS ORDERED: D5% in Water 1,000 ML IVC PRN (08:34)
[2020-06-19] MEDS ORDERED: Dextrose Gel 15 GM/37.5 ML TUBE PO PRN ×2 (08:34)
[2020-06-19] MEDS ORDERED: *HR* Dextrose 50 % in Water (Vial) 50 ML VIAL IVP PRN (08:34)
[2020-06-19] MEDS ORDERED: Vancomycin 1,500 MG/265 ML IV.SOLN IVPB SCH (09:00)
[2020-06-19] MEDS: atenoloL 50 MG TABLET PO SCH ×2 (10:33→20:42)
[2020-06-19] MEDS: Aspirin Enteric Coated 81 MG Tablet PO SCH (10:34)
[2020-06-19] MEDS: Insulin DETEMIR 100 UNIT/ML X5UNITS SQ SCH ×2 (10:34→20:42)
[2020-06-19] MEDS: 0.9 % Sodium Chloride 1,000 ML IVC SCH ×2 (10:34→23:46)
[2020-06-19] MEDS: rOPINIRole 0.25 MG TABLET PO SCH ×2 (10:34→20:41)
[2020-06-19] MEDS: Nystatin POWDER 30 GM BOTTLE TP SCH ×3 (10:41→20:45)
[2020-06-19] MEDS: Insulin LISPRO 300 UNITS/3 ML VIAL SQ SCH ×4 (12:11→17:33)
[2020-06-19 13:16] LABS: Calcium 9.4 mg/dL (8.6-10.3); Potassium 6.1 mEq/L (3.5-5.1)
[2020-06-19] MEDS: Cefepime HCl 2,000 MG in 0.9 % Sodium Chloride Mini Bag 100 ML IVPB SCH (17:34)
[2020-06-19] MEDS: *HR* Heparin 5,000 UNIT/ML VIAL SQ SCH (17:34)
[2020-06-19] MEDS: Mirtazapine 15 MG TABLET PO SCH (20:41)
[2020-06-19] MEDS: risperiDONE 0.25 MG TABLET PO SCH (20:41)
[2020-06-19] MEDS ORDERED: Mag Hydrox/Al Hydrox/Simeth 30 ML UDC PO ONE (23:26)
[2020-06-20 00:13] LABS: Calcium 8.5 mg/dL (8.6-10.3); Potassium 5.3 mEq/L (3.5-5.1)
[2020-06-20 05:01] LABS: Lymphocytes % 8.6 %; Mean Platelet Volume 9.7 fL (9.4-12.4)
[2020-06-20 05:02] LABS: Basophils # 0.1 K/mcL (0.0-0.2); Basophils % 0.4 %; Eosinophils # 0.3 K/mcL (0.0-0.6); Hematocrit 28.3 % (35.3-44.9); Hemoglobin 8.8 g/dL (11.5-15.4); Immature Granulocytes % 2.8 % (0-4); Lymphocytes # 2.3 K/mcL (0.6-4.6); Mean Corpuscular HGB Conc 31.1 g/dL (31.6-35.5); Mean Corpuscular Hemoglobin 29.3 pg (28.0-33.3); Mean Corpuscular Volume 94.3 fL (83.0-100.0); Monocytes # 2.5 K/mcL (0.0-1.3); Monocytes % 9.2 %; Platelet Count 741 K/mcL (140-400); Red Cell Distribution Width 14.5 % (11.5-14.5); White Blood Count 27.1 K/mcL (4.3-11.1)
[2020-06-20] MEDS: Cefepime HCl 2,000 MG in 0.9 % Sodium Chloride Mini Bag 100 ML IVPB SCH ×2 (05:15→17:25)
[2020-06-20] MEDS: *HR* Heparin 5,000 UNIT/ML VIAL SQ SCH ×2 (05:20→17:25)
[2020-06-20 05:21] LABS: Calcium 8.5 mg/dL (8.6-10.3); Magnesium 1.4 mg/dL (1.6-2.6); Potassium 5.2 mEq/L (3.5-5.1)
[2020-06-20 05:30] LABS: Neutrophils # 21.1 K/mcL (1.6-8.9)
[2020-06-20 06:13] LABS: Platelet Estimate Increased (Normal)
[2020-06-20] MEDS: rOPINIRole 0.25 MG TABLET PO SCH ×2 (08:31→20:40)
[2020-06-20] MEDS: atenoloL 50 MG TABLET PO SCH ×2 (08:31→20:40)
[2020-06-20] MEDS: Aspirin Enteric Coated 81 MG Tablet PO SCH (08:31)
[2020-06-20] MEDS: Insulin LISPRO 300 UNITS/3 ML VIAL SQ SCH ×4 (10:13→17:26)
[2020-06-20] MEDS: Insulin DETEMIR 100 UNIT/ML X5UNITS SQ SCH ×2 (10:16→20:42)
[2020-06-20] MEDS: Nystatin POWDER 30 GM BOTTLE TP SCH ×3 (10:17→20:41)
[2020-06-20] MEDS ORDERED: Vancomycin 1,250 MG/262.5 ML IV.SOLN IVPB ONE (12:03)
[2020-06-20 14:20] LABS: BUN/Creatinine Ratio 36 (6-26); Blood Urea Nitrogen 36 mg/dL (8-23); Calcium 8.6 mg/dL (8.6-10.3); Carbon Dioxide 16 mEq/L (23-29); Chloride 103 mEq/L (98-107); Glucose 214 mg/dL (70-105); Osmolality,Calculated 283 (280-300); Potassium 5.1 mEq/L (3.5-5.1); Sodium 129 mEq/L (136-145); eGFR For African Americans > 60 (> 60); eGFR For Non-African Americans 55 (> 60)
[2020-06-20] MEDS: 0.9 % Sodium Chloride 1,000 ML IVC SCH (14:42)
[2020-06-20] MEDS: Mirtazapine 15 MG TABLET PO SCH (20:40)
[2020-06-20] MEDS: risperiDONE 0.25 MG TABLET PO SCH (20:40)
[2020-06-21] MEDS: Cefepime HCl 2,000 MG in 0.9 % Sodium Chloride Mini Bag 100 ML IVPB SCH (06:06)
[2020-06-21] MEDS: *HR* Heparin 5,000 UNIT/ML VIAL SQ SCH (06:07)
[2020-06-21 07:07] LABS: Basophils % 0.5 %
[2020-06-21 07:08] LABS: Basophils # 0.1 K/mcL (0.0-0.2); Hematocrit 25.4 % (35.3-44.9); Hemoglobin 7.5 g/dL (11.5-15.4); Mean Corpuscular HGB Conc 29.5 g/dL (31.6-35.5); Mean Corpuscular Hemoglobin 28.3 pg (28.0-33.3); Mean Corpuscular Volume 95.8 fL (83.0-100.0); Platelet Count 648 K/mcL (140-400); Red Blood Count 2.65 M/mcL (3.82-4.97); Red Cell Distribution Width 14.6 % (11.5-14.5)
[2020-06-21 07:09] LABS: Eosinophils # 0.9 K/mcL (0.0-0.6); Eosinophils % 3.3 %; Immature Granulocytes % 4.6 % (0-4); Lymphocytes # 2.8 K/mcL (0.6-4.6); Lymphocytes % 10.8 %; Mean Platelet Volume 9.8 fL (9.4-12.4); Monocytes # 2.2 K/mcL (0.0-1.3); Monocytes % 8.6 %; Neutrophils # 18.8 K/mcL (1.6-8.9); Segmented Neutrophils % 72.2 %
[2020-06-21 07:26] LABS: BUN/Creatinine Ratio 37 (6-26); Blood Urea Nitrogen 22 mg/dL (8-23); Calcium 8.1 mg/dL (8.6-10.3); Carbon Dioxide 18 mEq/L (23-29); Chloride 108 mEq/L (98-107); Glucose 110 mg/dL (70-105); Osmolality,Calculated 280 (280-300); Potassium 4.8 mEq/L (3.5-5.1); Sodium 133 mEq/L (136-145); eGFR For African Americans > 60 (> 60); eGFR For Non-African Americans > 60 (> 60)
[2020-06-21 07:34] LABS: Platelet Estimate Increased (Normal); Toxic Granulation Present (Not Present); Toxic Vacuolation Present (Not Present)
[2020-06-21] MEDS: Nystatin POWDER 30 GM BOTTLE TP SCH ×3 (10:23→20:14)
[2020-06-21] MEDS: atenoloL 50 MG TABLET PO SCH ×2 (10:23→20:14)
[2020-06-21] MEDS: Insulin LISPRO 300 UNITS/3 ML VIAL SQ SCH ×3 (10:23→17:44)
[2020-06-21] MEDS: Aspirin Enteric Coated 81 MG Tablet PO SCH (10:23)
[2020-06-21] MEDS: rOPINIRole 0.25 MG TABLET PO SCH ×2 (10:23→20:14)
[2020-06-21] MEDS: Insulin DETEMIR 100 UNIT/ML X5UNITS SQ SCH ×2 (10:40→20:14)
[2020-06-21] MEDS: Ondansetron 4 MG/2 ML VIAL IVP PRN ×2 (11:16→23:49)
[2020-06-21] MEDS: Ertapenem 1,000 MG in 0.9 % Sodium Chloride Mini Bag 100 ML IVPB SCH (12:21)
[2020-06-21] MEDS: Mirtazapine 15 MG TABLET PO SCH (20:13)
[2020-06-21] MEDS: risperiDONE 0.25 MG TABLET PO SCH (20:13)
[2020-06-22 04:01] LABS: Bacteria,Urine Few per hpf (None-Few); Bilirubin,Urine Negative (Negative); Blood,Urine Large (Negative); Clarity,Urine Ex.Turbid (Clear); Color,Urine Yellow (Yellow); Glucose,Urine (UA) Normal (Normal); Ketones,Urine Trace mg/dL (Negative); Leukocyte Esterase,Urine Large (Negative); Mucus,Urine Few per lpf (None-Few); Nitrite,Urine Negative (Negative); Protein,Urine 70 mg/dL (Neg-Trace); RBC,Urine TNTC per hpf (0-3); Specific Gravity,Urine 1.014 (1.010-1.025); Urobilinogen,Urine Normal (Normal); WBC,Urine TNTC per hpf (0-3)
[2020-06-22 04:11] LABS: Sodium, Urine 82.4 mEq/L
[2020-06-22 05:02] LABS: Hemoglobin 8.2 g/dL (11.5-15.4); Immature Granulocytes % 4.6 % (0-4); Mean Platelet Volume 9.8 fL (9.4-12.4); Red Cell Distribution Width 14.4 % (11.5-14.5)
[2020-06-22 05:03] LABS: Basophils % 0.5 %; Eosinophils % 3.5 %; Hematocrit 26.5 % (35.3-44.9); Lymphocytes % 10.1 %; Mean Corpuscular HGB Conc 30.9 g/dL (31.6-35.5); Mean Corpuscular Hemoglobin 29.4 pg (28.0-33.3); Monocytes # 2.2 K/mcL (0.0-1.3); Monocytes % 7.4 %; Platelet Count 607 K/mcL (140-400); Red Blood Count 2.79 M/mcL (3.82-4.97); Segmented Neutrophils % 73.9 %; White Blood Count 29.6 K/mcL (4.3-11.1)
[2020-06-22 05:11] LABS: Basophils # 0.2 K/mcL (0.0-0.2); Neutrophils # 21.9 K/mcL (1.6-8.9)
[2020-06-22 05:22] LABS: BUN/Creatinine Ratio 27 (6-26); Blood Urea Nitrogen 16 mg/dL (8-23); Calcium 8.2 mg/dL (8.6-10.3); Carbon Dioxide 21 mEq/L (23-29); Chloride 104 mEq/L (98-107); Glucose 189 mg/dL (70-105); Magnesium 1.7 mg/dL (1.6-2.6); Osmolality,Calculated 278 (280-300); Sodium 131 mEq/L (136-145); eGFR For African Americans > 60 (> 60); eGFR For Non-African Americans > 60 (> 60)
[2020-06-22] MEDS: Insulin DETEMIR 100 UNIT/ML X5UNITS SQ SCH ×2 (08:25→19:34)
[2020-06-22] MEDS: Aspirin Enteric Coated 81 MG Tablet PO SCH (08:25)
[2020-06-22] MEDS: rOPINIRole 0.25 MG TABLET PO SCH ×2 (08:25→19:33)
[2020-06-22] MEDS: Insulin LISPRO 300 UNITS/3 ML VIAL SQ SCH ×3 (08:25→16:14)
[2020-06-22] MEDS: atenoloL 50 MG TABLET PO SCH ×2 (08:25→19:34)
[2020-06-22] MEDS: Nystatin POWDER 30 GM BOTTLE TP SCH ×3 (08:26→19:34)
[2020-06-22] MEDS: Ertapenem 1,000 MG in 0.9 % Sodium Chloride Mini Bag 100 ML IVPB SCH (12:32)
[2020-06-22] MEDS: Meropenem 1,000 MG in 0.9 % Sodium Chloride Mini Bag 100 ML IVPB SCH ×2 (16:13→23:55)
[2020-06-22] MEDS: risperiDONE 0.25 MG TABLET PO SCH (19:34)
[2020-06-22] MEDS: Mirtazapine 15 MG TABLET PO SCH (19:34)
[2020-06-23 03:05] LABS: Hemoglobin 7.6 g/dL (11.5-15.4); Mean Platelet Volume 9.8 fL (9.4-12.4); Monocytes % 7.5 %; Nucleated Red Blood Cells 0.1 /100 WBC (0); Red Cell Distribution Width 14.3 % (11.5-14.5)
[2020-06-23 03:06] LABS: Basophils # 0.2 K/mcL (0.0-0.2); Basophils % 0.5 %; Eosinophils % 3.9 %; Hematocrit 23.9 % (35.3-44.9); Immature Granulocytes % 5.1 % (0-4); Lymphocytes # 3.8 K/mcL (0.6-4.6); Lymphocytes % 12.9 %; Mean Corpuscular HGB Conc 31.8 g/dL (31.6-35.5); Mean Corpuscular Hemoglobin 29.7 pg (28.0-33.3); Mean Corpuscular Volume 93.4 fL (83.0-100.0); Monocytes # 2.2 K/mcL (0.0-1.3); Neutrophils # 20.5 K/mcL (1.6-8.9); Platelet Count 567 K/mcL (140-400); Red Blood Count 2.56 M/mcL (3.82-4.97); Segmented Neutrophils % 70.1 %; White Blood Count 29.3 K/mcL (4.3-11.1)
[2020-06-23 03:13] LABS: BUN/Creatinine Ratio 29 (6-26); Blood Urea Nitrogen 15 mg/dL (8-23); Calcium 7.7 mg/dL (8.6-10.3); Carbon Dioxide 20 mEq/L (23-29); Chloride 103 mEq/L (98-107); Glucose 165 mg/dL (70-105); Magnesium 1.4 mg/dL (1.6-2.6); Osmolality,Calculated 275 (280-300); Potassium 4.9 mEq/L (3.5-5.1); Sodium 130 mEq/L (136-145); eGFR For African Americans > 60 (> 60); eGFR For Non-African Americans > 60 (> 60)
[2020-06-23 03:22] LABS: Eosinophils # 1.1 K/mcL (0.0-0.6)
[2020-06-23] MEDS: rOPINIRole 0.25 MG TABLET PO SCH ×2 (07:49→20:45)
[2020-06-23] MEDS: Meropenem 1,000 MG in 0.9 % Sodium Chloride Mini Bag 100 ML IVPB SCH ×3 (07:49→23:39)
[2020-06-23] MEDS: Aspirin Enteric Coated 81 MG Tablet PO SCH (07:50)
[2020-06-23] MEDS: atenoloL 50 MG TABLET PO SCH ×2 (07:50→20:45)
[2020-06-23] MEDS: Insulin LISPRO 300 UNITS/3 ML VIAL SQ SCH ×3 (08:03→16:48)
[2020-06-23] MEDS: Insulin DETEMIR 100 UNIT/ML X5UNITS SQ SCH ×2 (08:04→20:45)
[2020-06-23] MEDS: Nystatin POWDER 30 GM BOTTLE TP SCH ×3 (11:33→20:46)
[2020-06-23] MEDS ORDERED: Furosemide 40 MG/4 ML VIAL IVP.RAD ONE (12:35)
[2020-06-23] MEDS: risperiDONE 0.25 MG TABLET PO SCH (20:45)
[2020-06-23] MEDS: Mirtazapine 15 MG TABLET PO SCH (20:45)
[2020-06-24 02:24] LABS: Basophils # 0.1 K/mcL (0.0-0.2); Basophils % 0.4 %; Hematocrit 23.7 % (35.3-44.9); Hemoglobin 7.4 g/dL (11.5-15.4); Immature Granulocytes % 3.8 % (0-4); Lymphocytes # 3.3 K/mcL (0.6-4.6); Lymphocytes % 10.7 %; Mean Corpuscular HGB Conc 31.2 g/dL (31.6-35.5); Mean Corpuscular Hemoglobin 28.6 pg (28.0-33.3); Mean Corpuscular Volume 91.5 fL (83.0-100.0); Mean Platelet Volume 9.6 fL (9.4-12.4); Monocytes # 2.1 K/mcL (0.0-1.3); Monocytes % 6.6 %; Neutrophils # 23.2 K/mcL (1.6-8.9); Nucleated Red Blood Cells 0.1 /100 WBC (0); Platelet Count 568 K/mcL (140-400); Red Blood Count 2.59 M/mcL (3.82-4.97); Red Cell Distribution Width 14.2 % (11.5-14.5); Segmented Neutrophils % 74.5 %
[2020-06-24 02:25] LABS: Eosinophils # 1.2 K/mcL (0.0-0.6)
[2020-06-24 02:27] LABS: White Blood Count 31.1 K/mcL (4.3-11.1)
[2020-06-24 02:42] LABS: BUN/Creatinine Ratio 30 (6-26); Blood Urea Nitrogen 17 mg/dL (8-23); Calcium 8.1 mg/dL (8.6-10.3); Carbon Dioxide 27 mEq/L (23-29); Chloride 99 mEq/L (98-107); Glucose 260 mg/dL (70-105); Magnesium 1.8 mg/dL (1.6-2.6); Osmolality,Calculated 285 (280-300); Potassium 4.7 mEq/L (3.5-5.1); Sodium 132 mEq/L (136-145); eGFR For African Americans > 60 (> 60); eGFR For Non-African Americans > 60 (> 60)
[2020-06-24 02:51] LABS: Toxic Granulation Present (Not Present)
[2020-06-24] MEDS: Meropenem 1,000 MG in 0.9 % Sodium Chloride Mini Bag 100 ML IVPB SCH ×2 (08:26→16:05)
[2020-06-24] MEDS: atenoloL 50 MG TABLET PO SCH ×2 (08:29→21:26)
[2020-06-24] MEDS: rOPINIRole 0.25 MG TABLET PO SCH ×2 (08:29→21:25)
[2020-06-24] MEDS: Aspirin Enteric Coated 81 MG Tablet PO SCH (08:29)
[2020-06-24] MEDS: Insulin LISPRO 300 UNITS/3 ML VIAL SQ SCH ×4 (08:34→21:29)
[2020-06-24] MEDS: Insulin DETEMIR 100 UNIT/ML X5UNITS SQ SCH (08:35)
[2020-06-24] MEDS: Nystatin POWDER 30 GM BOTTLE TP SCH ×3 (08:36→21:25)
[2020-06-24] MEDS: polyethylene glycoL 3350 17 GM POWD.PACK PO SCH (11:32)
[2020-06-24] MEDS ORDERED: Insulin DETEMIR 100 UNIT/ML X5UNITS SQ SCH (21:00)
[2020-06-24] MEDS: risperiDONE 0.25 MG TABLET PO SCH (21:25)
[2020-06-24] MEDS: Mirtazapine 15 MG TABLET PO SCH (21:25)
[2020-06-25] MEDS: Meropenem 1,000 MG in 0.9 % Sodium Chloride Mini Bag 100 ML IVPB SCH ×3 (00:52→17:42)
[2020-06-25 05:04] LABS: Immature Reticulocyte % 39.6 % (11.0-38.0); Retculocyte # 0.05 M/mcL (0.05-0.10); Reticulocyte % 2.2 % (1.6-2.8)
[2020-06-25 05:20] LABS: % Iron Saturation 11 % (15-50); C-Reactive Protein 25 mg/L (Less than 10); Iron 25 mcg/dL (50-170); Lactate Dehydrogenase 165 Units/L (140-271); Transferrin 158 mg/dL (203-362)
[2020-06-25 05:45] LABS: Folate 13.6 ng/mL (3.0-16.0)
[2020-06-25] MEDS: rOPINIRole 0.25 MG TABLET PO SCH (08:22)
[2020-06-25] MEDS: Aspirin Enteric Coated 81 MG Tablet PO SCH (08:22)
[2020-06-25] MEDS: atenoloL 50 MG TABLET PO SCH ×2 (08:22→21:18)
[2020-06-25] MEDS: polyethylene glycoL 3350 17 GM POWD.PACK PO SCH (08:23)
[2020-06-25] MEDS: Nystatin POWDER 30 GM BOTTLE TP SCH ×2 (08:23→18:25)
[2020-06-25] MEDS: Insulin LISPRO 300 UNITS/3 ML VIAL SQ SCH ×4 (08:23→21:19)
[2020-06-25 08:46] LABS: Basophils % 0.4 %; Hemoglobin 6.9 g/dL (11.5-15.4); Mean Platelet Volume 9.9 fL (9.4-12.4); Red Cell Distribution Width 14.3 % (11.5-14.5)
[2020-06-25 08:48] LABS: Basophils # 0.1 K/mcL (0.0-0.2); Eosinophils % 3.2 %; Hematocrit 22.5 % (35.3-44.9); Immature Granulocytes % 3.1 % (0-4); Lymphocytes # 3.4 K/mcL (0.6-4.6); Lymphocytes % 10.5 %; Mean Corpuscular HGB Conc 30.7 g/dL (31.6-35.5); Mean Corpuscular Hemoglobin 28.4 pg (28.0-33.3); Mean Corpuscular Volume 92.6 fL (83.0-100.0); Monocytes # 1.5 K/mcL (0.0-1.3); Monocytes % 4.6 %; Platelet Count 536 K/mcL (140-400); Red Blood Count 2.43 M/mcL (3.82-4.97); Segmented Neutrophils % 78.2 %
[2020-06-25] MEDS: Insulin DETEMIR 100 UNIT/ML X5UNITS SQ SCH ×2 (08:54→21:19)
[2020-06-25 09:04] LABS: BUN/Creatinine Ratio 40 (6-26); Blood Urea Nitrogen 16 mg/dL (8-23); Calcium 8.1 mg/dL (8.6-10.3); Carbon Dioxide 27 mEq/L (23-29); Chloride 101 mEq/L (98-107); Glucose 246 mg/dL (70-105); Osmolality,Calculated 285 (280-300); Potassium 4.8 mEq/L (3.5-5.1); Sodium 133 mEq/L (136-145); eGFR For African Americans > 60 (> 60); eGFR For Non-African Americans > 60 (> 60)
[2020-06-25] MEDS ORDERED: Isovue-370 500 ML BOTTLE IVP ONE (09:20)
[2020-06-25 09:33] LABS: Platelet Estimate Normal (Normal)
[2020-06-25] MEDS: Iron Sucrose Complex 200 MG in 0.9 % Sodium Chloride 100 ML IVPB SCH (12:53)
[2020-06-26] MEDS: Mirtazapine 15 MG TABLET PO SCH ×2 (01:31→21:46)
[2020-06-26] MEDS: rOPINIRole 0.25 MG TABLET PO SCH ×3 (01:31→21:46)
[2020-06-26] MEDS: risperiDONE 0.25 MG TABLET PO SCH ×2 (01:31→21:46)
[2020-06-26] MEDS: Nystatin POWDER 30 GM BOTTLE TP SCH ×4 (01:33→21:47)
[2020-06-26] MEDS: Meropenem 1,000 MG in 0.9 % Sodium Chloride Mini Bag 100 ML IVPB SCH ×3 (01:34→15:50)
[2020-06-26] MEDS: Insulin LISPRO 300 UNITS/3 ML VIAL SQ SCH ×4 (07:48→21:46)
[2020-06-26 08:23] LABS: Basophils # 0.1 K/mcL (0.0-0.2); Basophils % 0.4 %; Eosinophils % 3.2 %; Hematocrit 25.5 % (35.3-44.9); Hemoglobin 7.9 g/dL (11.5-15.4); Immature Granulocytes % 1.9 % (0-4); Lymphocytes # 3.2 K/mcL (0.6-4.6); Lymphocytes % 10.4 %; Mean Corpuscular Hemoglobin 29.3 pg (28.0-33.3); Mean Corpuscular Volume 94.4 fL (83.0-100.0); Mean Platelet Volume 10.3 fL (9.4-12.4); Monocytes # 1.3 K/mcL (0.0-1.3); Monocytes % 4.2 %; Neutrophils # 24.8 K/mcL (1.6-8.9); Nucleated Red Blood Cells 0.1 /100 WBC (0); Platelet Count 501 K/mcL (140-400); Red Cell Distribution Width 14.3 % (11.5-14.5); Segmented Neutrophils % 79.9 %
[2020-06-26 08:48] LABS: Platelet Estimate Normal (Normal)
[2020-06-26 08:49] LABS: Anisocytosis 1+ (Not Present)
[2020-06-26] MEDS: Aspirin Enteric Coated 81 MG Tablet PO SCH (09:00)
[2020-06-26] MEDS: Iron Sucrose Complex 200 MG in 0.9 % Sodium Chloride 100 ML IVPB SCH (09:00)
[2020-06-26] MEDS: atenoloL 50 MG TABLET PO SCH ×2 (09:00→21:46)
[2020-06-26] MEDS: Insulin DETEMIR 100 UNIT/ML X5UNITS SQ SCH ×2 (09:00→21:46)
[2020-06-26 09:02] LABS: Alanine Aminotransferase 76 Units/L (7-52); Albumin 2.3 g/dL (3.5-5.7); Albumin/Globulin Ratio 0.8 (1.1-2.2); Alkaline Phosphatase 146 Units/L (34-104); Aspartate Amino Transferase 40 Units/L (13-39); BUN/Creatinine Ratio 32 (6-26); Bilirubin,Total 0.3 mg/dL (0.3-1.0); Blood Urea Nitrogen 15 mg/dL (8-23); Calcium 7.8 mg/dL (8.6-10.3); Carbon Dioxide 28 mEq/L (23-29); Chloride 98 mEq/L (98-107); Globulin 2.8 g/dL (2.4-3.5); Glucose 129 mg/dL (70-105); Osmolality,Calculated 277 (280-300); Potassium 4.4 mEq/L (3.5-5.1); Sodium 132 mEq/L (136-145); Total Protein 5.1 g/dL (6.4-8.9); eGFR For African Americans > 60 (> 60); eGFR For Non-African Americans > 60 (> 60)
[2020-06-26] MEDS: polyethylene glycoL 3350 17 GM POWD.PACK PO SCH (09:02)
[2020-06-27] MEDS: Meropenem 1,000 MG in 0.9 % Sodium Chloride Mini Bag 100 ML IVPB SCH ×3 (00:44→14:50)
[2020-06-27 02:00] LABS: Basophils # 0.1 K/mcL (0.0-0.2); Basophils % 0.4 %; Hematocrit 24.4 % (35.3-44.9); Hemoglobin 7.5 g/dL (11.5-15.4); Immature Granulocytes % 1.9 % (0-4); Lymphocytes # 3.7 K/mcL (0.6-4.6); Lymphocytes % 15.2 %; Mean Corpuscular HGB Conc 30.7 g/dL (31.6-35.5); Mean Corpuscular Hemoglobin 28.8 pg (28.0-33.3); Mean Corpuscular Volume 93.8 fL (83.0-100.0); Mean Platelet Volume 9.9 fL (9.4-12.4); Monocytes # 1.4 K/mcL (0.0-1.3); Monocytes % 5.6 %; Neutrophils # 17.6 K/mcL (1.6-8.9); Nucleated Red Blood Cells 0.1 /100 WBC (0); Platelet Count 504 K/mcL (140-400); Red Cell Distribution Width 14.3 % (11.5-14.5); Segmented Neutrophils % 72.9 %; White Blood Count 24.2 K/mcL (4.3-11.1)
[2020-06-27 02:20] LABS: Alanine Aminotransferase 68 Units/L (7-52); Albumin 2.2 g/dL (3.5-5.7); Albumin/Globulin Ratio 0.8 (1.1-2.2); Alkaline Phosphatase 134 Units/L (34-104); Aspartate Amino Transferase 38 Units/L (13-39); BUN/Creatinine Ratio 36 (6-26); Bilirubin,Total 0.2 mg/dL (0.3-1.0); Blood Urea Nitrogen 15 mg/dL (8-23); Calcium 7.9 mg/dL (8.6-10.3); Carbon Dioxide 28 mEq/L (23-29); Chloride 103 mEq/L (98-107); Globulin 2.7 g/dL (2.4-3.5); Glucose 156 mg/dL (70-105); Magnesium 1.6 mg/dL (1.6-2.6); Osmolality,Calculated 284 (280-300); Potassium 4.5 mEq/L (3.5-5.1); Sodium 135 mEq/L (136-145); Total Protein 4.9 g/dL (6.4-8.9); eGFR For African Americans > 60 (> 60); eGFR For Non-African Americans > 60 (> 60)
[2020-06-27] MEDS: Insulin LISPRO 300 UNITS/3 ML VIAL SQ SCH ×6 (09:47→16:25)
[2020-06-27] MEDS: rOPINIRole 0.25 MG TABLET PO SCH ×2 (09:48→20:54)
[2020-06-27] MEDS: polyethylene glycoL 3350 17 GM POWD.PACK PO SCH (09:48)
[2020-06-27] MEDS: Nystatin POWDER 30 GM BOTTLE TP SCH ×3 (09:48→20:54)
[2020-06-27] MEDS: Aspirin Enteric Coated 81 MG Tablet PO SCH (09:48)
[2020-06-27] MEDS: atenoloL 50 MG TABLET PO SCH ×2 (09:49→20:54)
[2020-06-27] MEDS: Insulin DETEMIR 100 UNIT/ML X5UNITS SQ SCH (09:51)
[2020-06-27] MEDS: risperiDONE 0.25 MG TABLET PO SCH (20:54)
[2020-06-27] MEDS: Mirtazapine 15 MG TABLET PO SCH (20:54)
[2020-06-28] MEDS: Insulin DETEMIR 100 UNIT/ML X5UNITS SQ SCH ×3 (00:48→20:07)
[2020-06-28 02:26] LABS: Basophils # 0.1 K/mcL (0.0-0.2); Basophils % 0.5 %; Eosinophils # 0.9 K/mcL (0.0-0.6); Eosinophils % 3.8 %; Hematocrit 27.4 % (35.3-44.9); Immature Granulocytes % 1.1 % (0-4); Lymphocytes % 15.1 %; Mean Corpuscular HGB Conc 29.2 g/dL (31.6-35.5); Mean Corpuscular Hemoglobin 28.9 pg (28.0-33.3); Mean Corpuscular Volume 98.9 fL (83.0-100.0); Mean Platelet Volume 11.5 fL (9.4-12.4); Monocytes # 1.4 K/mcL (0.0-1.3); Monocytes % 5.8 %; Neutrophils # 17.3 K/mcL (1.6-8.9); Nucleated Red Blood Cells 0.1 /100 WBC (0); Platelet Count 344 K/mcL (140-400); Red Blood Count 2.77 M/mcL (3.82-4.97); Red Cell Distribution Width 14.6 % (11.5-14.5); Segmented Neutrophils % 73.7 %; White Blood Count 23.5 K/mcL (4.3-11.1)
[2020-06-28 02:27] LABS: Lymphocytes # 3.6 K/mcL (0.6-4.6)
[2020-06-28 02:34] LABS: BUN/Creatinine Ratio 34 (6-26); Blood Urea Nitrogen 19 mg/dL (8-23); Carbon Dioxide 27 mEq/L (23-29); Chloride 101 mEq/L (98-107); Glucose 210 mg/dL (70-105); Osmolality,Calculated 284 (280-300); Potassium 4.6 mEq/L (3.5-5.1); Sodium 133 mEq/L (136-145); eGFR For African Americans > 60 (> 60); eGFR For Non-African Americans > 60 (> 60)
[2020-06-28] MEDS: Meropenem 1,000 MG in 0.9 % Sodium Chloride Mini Bag 100 ML IVPB SCH ×3 (03:37→17:59)
[2020-06-28] MEDS: Aspirin Enteric Coated 81 MG Tablet PO SCH (09:10)
[2020-06-28] MEDS: polyethylene glycoL 3350 17 GM POWD.PACK PO SCH (09:10)
[2020-06-28] MEDS: atenoloL 50 MG TABLET PO SCH ×2 (09:10→20:07)
[2020-06-28] MEDS: rOPINIRole 0.25 MG TABLET PO SCH ×2 (09:10→20:08)
[2020-06-28] MEDS: Nystatin POWDER 30 GM BOTTLE TP SCH ×3 (09:11→20:10)
[2020-06-28] MEDS: Insulin LISPRO 300 UNITS/3 ML VIAL SQ SCH ×6 (09:13→18:00)
[2020-06-28] MEDS: risperiDONE 0.25 MG TABLET PO SCH (20:07)
[2020-06-28] MEDS: Mirtazapine 15 MG TABLET PO SCH (20:08)
[2020-06-29] MEDS: Meropenem 1,000 MG in 0.9 % Sodium Chloride Mini Bag 100 ML IVPB SCH ×2 (00:25→08:48)
[2020-06-29 06:41] LABS: Basophils # 0.1 K/mcL (0.0-0.2); Basophils % 0.6 %; Eosinophils # 0.8 K/mcL (0.0-0.6); Eosinophils % 4.7 %; Hematocrit 26.2 % (35.3-44.9); Hemoglobin 8.1 g/dL (11.5-15.4); Immature Granulocytes % 0.6 % (0-4); Lymphocytes # 2.9 K/mcL (0.6-4.6); Lymphocytes % 16.4 %; Mean Corpuscular HGB Conc 30.9 g/dL (31.6-35.5); Mean Platelet Volume 9.8 fL (9.4-12.4); Monocytes # 1.1 K/mcL (0.0-1.3); Monocytes % 6.5 %; Neutrophils # 12.4 K/mcL (1.6-8.9); Platelet Count 538 K/mcL (140-400); Red Cell Distribution Width 15.2 % (11.5-14.5); Segmented Neutrophils % 71.2 %; White Blood Count 17.4 K/mcL (4.3-11.1)
[2020-06-29 07:23] LABS: BUN/Creatinine Ratio 48 (6-26); Blood Urea Nitrogen 19 mg/dL (8-23); Calcium 8.5 mg/dL (8.6-10.3); Carbon Dioxide 27 mEq/L (23-29); Chloride 104 mEq/L (98-107); Glucose 224 mg/dL (70-105); Osmolality,Calculated 291 (280-300); Potassium 4.6 mEq/L (3.5-5.1); Sodium 136 mEq/L (136-145); eGFR For African Americans > 60 (> 60); eGFR For Non-African Americans > 60 (> 60)
[2020-06-29] MEDS: Insulin LISPRO 300 UNITS/3 ML VIAL SQ SCH ×4 (08:47→12:27)
[2020-06-29] MEDS: Aspirin Enteric Coated 81 MG Tablet PO SCH (08:47)
[2020-06-29] MEDS: Insulin DETEMIR 100 UNIT/ML X5UNITS SQ SCH (08:47)
[2020-06-29] MEDS: atenoloL 50 MG TABLET PO SCH (08:47)
[2020-06-29] MEDS: rOPINIRole 0.25 MG TABLET PO SCH (08:47)
[2020-06-29] MEDS: polyethylene glycoL 3350 17 GM POWD.PACK PO SCH (08:48)
[2020-06-29] MEDS: Nystatin POWDER 30 GM BOTTLE TP SCH (08:48)
[2020-06-29 12:19] VITALS: BP 125/63
[2020-06-29] MEDS ORDERED: FLU Vac QV 20-21 (6Month+)/PF 0.5 ML SYRINGE IM ONE (13:49)
[2020-06-29 22:34] LABS: BCR-ABL1 Specimen Source NOT SPECIFIED
[2020-06-30 13:00] LABS: JAK2 (V617F) Mutation by PCR NOT DETECTED
[2020-06-30 13:03] LABS: MPL codon 515 Mut-PeripheralBl NOT DETECTED
== END 2020-06-29 14:31 | DRG 871 ==
LOC: EMEROOARM 03:29 → 2ANU 03:29 → SUATTDRO 17:17 → 2ANU 06-25 15:01
PROVIDERS: ADMIT Internal Medicine; ATTEND Internal Medicine

== ENCOUNTER 2020-07-27 22:14 | Inpatient (IN) ==
[2020-07-27] MEDS ORDERED: Ondansetron 4 MG/2 ML VIAL IVP ONE (23:08)
[2020-07-27 23:39] LABS: Basophils % 0.2 %; Eosinophils % 0.1 %; Hematocrit 28.6 % (35.3-44.9); Hemoglobin 9.2 g/dL (11.5-15.4); Immature Granulocytes % 1.8 % (0-4); Lymphocytes # 1.4 K/mcL (0.6-4.6); Lymphocytes % 8.1 %; Mean Corpuscular HGB Conc 32.2 g/dL (31.6-35.5); Mean Corpuscular Hemoglobin 30.1 pg (28.0-33.3); Mean Corpuscular Volume 93.5 fL (83.0-100.0); Mean Platelet Volume 10.4 fL (9.4-12.4); Monocytes # 1.5 K/mcL (0.0-1.3); Monocytes % 8.7 %; Neutrophils # 13.9 K/mcL (1.6-8.9); Platelet Count 602 K/mcL (140-400); Red Blood Count 3.06 M/mcL (3.82-4.97); Red Cell Distribution Width 15.5 % (11.5-14.5); Segmented Neutrophils % 81.1 %; White Blood Count 17.1 K/mcL (4.3-11.1)
[2020-07-27 23:59] LABS: Alanine Aminotransferase 46 Units/L (7-52); Albumin 2.9 g/dL (3.5-5.7); Albumin/Globulin Ratio 0.7 (1.1-2.2); Alkaline Phosphatase 235 Units/L (34-104); Aspartate Amino Transferase 20 Units/L (13-39); BUN/Creatinine Ratio 24 (6-26); Bilirubin,Direct 0.3 mg/dL (0.0-0.2); Bilirubin,Indirect 0.3 mg/dL (0.0-1.0); Bilirubin,Total 0.6 mg/dL (0.3-1.0); Blood Urea Nitrogen 34 mg/dL (8-23); Calcium 8.6 mg/dL (8.6-10.3); Carbon Dioxide 18 mEq/L (23-29); Chloride 100 mEq/L (98-107); Glucose 331 mg/dL (70-105); Lipase 26 Units/L (11-82); Osmolality,Calculated 291 (280-300); Potassium 5.1 mEq/L (3.5-5.1); Sodium 130 mEq/L (136-145); Total Protein 6.9 g/dL (6.4-8.9); eGFR For African Americans 44 (> 60); eGFR For Non-African Americans 36 (> 60)
[2020-07-28 00:01] LABS: Troponin I < 0.03 ng/mL (< 0.04)
[2020-07-28 00:09] LABS: Bacteria,Urine Many per hpf (None-Few); Bilirubin,Urine Negative (Negative); Blood,Urine Trace (Negative); Clarity,Urine Ex.Turbid (Clear); Color,Urine Yellow (Yellow); Glucose,Urine (UA) 500 mg/dL (Normal); Ketones,Urine Negative (Negative); Leukocyte Esterase,Urine Large (Negative); Nitrite,Urine Positive (Negative); PH,Urine 8.5 pH Units (5.0-8.0); Protein,Urine >=300 mg/dL (Neg-Trace); RBC,Urine 50-100 per hpf (0-3); Specific Gravity,Urine 1.013 (1.010-1.025); Squamous Epithelial Cell,Urine Few per hpf (None-Few); Urobilinogen,Urine Normal (Normal); WBC,Urine TNTC per hpf (0-3)
[2020-07-28] MEDS ORDERED: levoFLOXacin 500 MG/100 ML 500 MG/100 ML BAG IVPB ONE (00:49)
[2020-07-28] MEDS ORDERED: MetroNIDAZOLE 500 MG/100 ML 500 MG/100 ML BAG IVPB ONE (01:05)
[2020-07-28] MEDS ORDERED: Pantoprazole 40 MG VIAL IVP ONE (01:22)
[2020-07-28] MEDS ORDERED: Ertapenem 1,000 MG in 0.9 % Sodium Chloride Mini Bag 100 ML IVPB STA (02:27)
[2020-07-28] MEDS ORDERED: Naloxone 0.4 MG/ML INJ IVP PRN (05:16)
[2020-07-28] MEDS ORDERED: Acetaminophen 325 MG TABLET PO PRN (05:16)
[2020-07-28] MEDS ORDERED: Ondansetron ODT 4 MG TAB.RAPDIS SL PRN (05:16)
[2020-07-28] MEDS ORDERED: Ipratropium/Albuterol Neb 3 ML IH PRN (05:20)
[2020-07-28] MEDS ORDERED: D5% in Water 1,000 ML IVC PRN (05:24)
[2020-07-28] MEDS ORDERED: Dextrose Gel 15 GM/37.5 ML TUBE PO PRN ×2 (05:24)
[2020-07-28] MEDS ORDERED: *HR* Dextrose 50 % in Water (Vial) 50 ML VIAL IVP PRN (05:24)
[2020-07-28 06:59] LABS: INR 1.5; Prothrombin Time 16.7 Seconds (9.4-12.1)
[2020-07-28] MEDS: 0.9 % Sodium Chloride 1,000 ML IVC SCH ×2 (07:08→14:13)
[2020-07-28] MEDS: Insulin LISPRO 300 UNITS/3 ML VIAL SQ SCH ×3 (07:09→16:56)
[2020-07-28 07:43] LABS: Calcium 8.2 mg/dL (8.6-10.3); Magnesium 1.6 mg/dL (1.6-2.6); Phosphorous 4.1 mg/dL (2.7-4.5); Potassium 4.6 mEq/L (3.5-5.1)
[2020-07-28] MEDS ORDERED: MetroNIDAZOLE 500 MG/100 ML 500 MG/100 ML BAG IVPB SCH (08:00)
[2020-07-28] MEDS: Pantoprazole 40 MG VIAL IVP SCH (15:52)
[2020-07-28] MEDS: Meropenem 1,000 MG in 0.9 % Sodium Chloride Mini Bag 100 ML IVPB SCH (17:06)
[2020-07-28] MEDS: Mirtazapine 15 MG TABLET PO SCH (21:40)
[2020-07-29] MEDS: Insulin LISPRO 300 UNITS/3 ML VIAL SQ SCH ×5 (00:22→23:47)
[2020-07-29] MEDS: Pantoprazole 40 MG VIAL IVP SCH ×2 (00:53→12:04)
[2020-07-29] MEDS: Meropenem 1,000 MG in 0.9 % Sodium Chloride Mini Bag 100 ML IVPB SCH ×2 (05:13→18:00)
[2020-07-29 07:44] LABS: Mean Platelet Volume 10.9 fL (9.4-12.4); Red Cell Distribution Width 15.9 % (11.5-14.5)
[2020-07-29 07:45] LABS: Hematocrit 24.2 % (35.3-44.9); Hemoglobin 7.7 g/dL (11.5-15.4); Mean Corpuscular HGB Conc 31.8 g/dL (31.6-35.5); Mean Corpuscular Hemoglobin 29.1 pg (28.0-33.3); Mean Corpuscular Volume 91.3 fL (83.0-100.0); Platelet Count 427 K/mcL (140-400); Red Blood Count 2.65 M/mcL (3.82-4.97)
[2020-07-29 07:50] LABS: White Blood Count 31.6 K/mcL (4.3-11.1)
[2020-07-29 08:08] LABS: Eosinophils # 0.3 K/mcL (0.0-0.6); Lymphocytes # 2.2 K/mcL (0.6-4.6); Monocytes # 1.6 K/mcL (0.0-1.3); Neutrophils # 27.5 K/mcL (1.6-8.9)
[2020-07-29] MEDS ORDERED: Ertapenem 1,000 MG in 0.9 % Sodium Chloride Mini Bag 100 ML IVPB SCH (09:00)
[2020-07-29] MEDS ORDERED: Acetaminophen IV 1,000 MG/100 ML INFUS..BTL IVPB PRN (12:00)
[2020-07-29] MEDS ORDERED: *HR* Metoprolol 5 MG/5 ML VIAL IVP PRN (12:42)
[2020-07-29] MEDS: Ringers Solution, Lactated 1,000 ML IVC SCH (12:54)
[2020-07-29 13:18] LABS: Acinetobacter baumannii by PCR Not Detected (Not Detect); Enterobacter cloacae Cmplx PCR Not Detected (Not Detect); Enterobacteriaceae by PCR Not Detected (Not Detect); Enterococcus by PCR Not Detected (Not Detect); Escherichia coli by PCR Not Detected (Not Detect); Klebsiella oxytoca by PCR Not Detected (Not Detect); Klebsiella pneumoniae by PCR Not Detected (Not Detect); Staphylococcus aureus by PCR Not Detected (Not Detect); Staphylococcus by PCR Not Detected (Not Detect); Streptococcus agalactiae(B)PCR Not Detected (Not Detect); Streptococcus by PCR Not Detected (Not Detect); Streptococcus pneumoniae PCR Not Detected (Not Detect); Streptococcus pyogenes (A) PCR Not Detected (Not Detect); blaKPC Carbapenem-Resist Gene Not Detected (Not Detect); mecA Methicillin-Resist Gene Not Detected (Not Detect); vanA/B Vancomycin-Resist Genes Not Detected (Not Detect)
[2020-07-29 13:19] LABS: Proteus by PCR DETECTED (Not Detect)
[2020-07-29 13:20] LABS: Candida albicans by PCR Not Detected (Not Detect); Candida glabrata by PCR Not Detected (Not Detect); Candida krusei by PCR Not Detected (Not Detect); Candida parapsilosis by PCR Not Detected (Not Detect); Candida tropicalis by PCR Not Detected (Not Detect); Pseudomonas aeruginosa by PCR Not Detected (Not Detect); Serratia marcescens by PCR Not Detected (Not Detect)
[2020-07-29 15:14] LABS: Hematocrit 27.7 % (35.3-44.9); Hemoglobin 8.2 g/dL (11.5-15.4)
[2020-07-29] MEDS: Mirtazapine 15 MG TABLET PO SCH (21:28)
[2020-07-29 21:41] LABS: Hemoglobin 7.8 g/dL (11.5-15.4)
[2020-07-30] MEDS: Pantoprazole 40 MG VIAL IVP SCH ×2 (01:07→13:03)
[2020-07-30] MEDS: Ringers Solution, Lactated 1,000 ML IVC SCH ×2 (01:08→16:34)
[2020-07-30] MEDS: Meropenem 1,000 MG in 0.9 % Sodium Chloride Mini Bag 100 ML IVPB SCH ×2 (05:24→16:59)
[2020-07-30] MEDS: Insulin LISPRO 300 UNITS/3 ML VIAL SQ SCH ×3 (05:37→17:24)
[2020-07-30 09:45] LABS: Hematocrit 27.5 % (35.3-44.9); Hemoglobin 8.3 g/dL (11.5-15.4); Mean Corpuscular HGB Conc 30.2 g/dL (31.6-35.5); Mean Corpuscular Hemoglobin 28.7 pg (28.0-33.3); Mean Corpuscular Volume 95.2 fL (83.0-100.0); Mean Platelet Volume 9.8 fL (9.4-12.4); Platelet Count 626 K/mcL (140-400); Red Blood Count 2.89 M/mcL (3.82-4.97); White Blood Count 25.9 K/mcL (4.3-11.1)
[2020-07-30 10:01] LABS: BUN/Creatinine Ratio 20 (6-26); Blood Urea Nitrogen 17 mg/dL (8-23); Calcium 8.5 mg/dL (8.6-10.3); Carbon Dioxide 19 mEq/L (23-29); Chloride 111 mEq/L (98-107); Glucose 112 mg/dL (70-105); Osmolality,Calculated 296 (280-300); Sodium 142 mEq/L (136-145); eGFR For African Americans > 60 (> 60); eGFR For Non-African Americans > 60 (> 60)
[2020-07-30 10:13] LABS: Basophils # 0.5 K/mcL (0.0-0.2); Lymphocytes # 2.1 K/mcL (0.6-4.6); Neutrophils # 20.5 K/mcL (1.6-8.9); Toxic Granulation Present (Not Present); Toxic Vacuolation Present (Not Present)
[2020-07-30 10:14] LABS: Anisocytosis 1+ (Not Present); Poikilocytosis 1+ (Not Present); Reactive Lymphocytes Present (Not Present)
[2020-07-30 10:18] LABS: Smudge Cells Present (Not Present)
[2020-07-30] MEDS: Mirtazapine 15 MG TABLET PO SCH (20:39)
[2020-07-31] MEDS: Insulin LISPRO 300 UNITS/3 ML VIAL SQ SCH ×3 (00:32→12:18)
[2020-07-31] MEDS: Pantoprazole 40 MG VIAL IVP SCH (02:05)
[2020-07-31] MEDS: Meropenem 1,000 MG in 0.9 % Sodium Chloride Mini Bag 100 ML IVPB SCH (06:48)
[2020-07-31 06:49] LABS: Basophils # 0.1 K/mcL (0.0-0.2); Basophils % 0.5 %; Eosinophils # 1.2 K/mcL (0.0-0.6); Eosinophils % 5.5 %; Hematocrit 23.8 % (35.3-44.9); Hemoglobin 7.4 g/dL (11.5-15.4); Immature Granulocytes % 1.9 % (0-4); Lymphocytes % 9.4 %; Mean Corpuscular HGB Conc 31.1 g/dL (31.6-35.5); Mean Corpuscular Hemoglobin 29.5 pg (28.0-33.3); Mean Corpuscular Volume 94.8 fL (83.0-100.0); Mean Platelet Volume 9.5 fL (9.4-12.4); Monocytes # 1.2 K/mcL (0.0-1.3); Monocytes % 5.7 %; Neutrophils # 16.5 K/mcL (1.6-8.9); Platelet Count 584 K/mcL (140-400); Red Blood Count 2.51 M/mcL (3.82-4.97); Red Cell Distribution Width 15.7 % (11.5-14.5); White Blood Count 21.4 K/mcL (4.3-11.1)
[2020-07-31 07:06] LABS: BUN/Creatinine Ratio 18 (6-26); Blood Urea Nitrogen 13 mg/dL (8-23); Calcium 8.1 mg/dL (8.6-10.3); Carbon Dioxide 21 mEq/L (23-29); Chloride 107 mEq/L (98-107); Glucose 174 mg/dL (70-105); Osmolality,Calculated 290 (280-300); Sodium 138 mEq/L (136-145); eGFR For African Americans > 60 (> 60); eGFR For Non-African Americans > 60 (> 60)
[2020-07-31 07:09] VITALS: BP 134/69
[2020-07-31] MEDS ORDERED: levoFLOXacin 750 MG TABLET PO SCH (09:30)
[2020-07-31] MEDS ORDERED: Acetaminophen 325 MG TABLET PO PRN (13:23)
[2020-07-31 15:18] LABS: Hematocrit 25.7 % (35.3-44.9); Hemoglobin 8.1 g/dL (11.5-15.4)
== END 2020-07-31 17:18 | disposition home health service (06) | DRG 871 ==
LOC: EMEROOARM 22:14 → 3ANU 22:14 → SUATTDRO 07-28 14:34
PROVIDERS: ADMIT Student in an Organized Health Care Education/Training Program; ATTEND Internal Medicine

== ENCOUNTER 2020-09-04 20:11 | Inpatient (IN) ==
[2020-09-04] MEDS ORDERED: 0.9 % Sodium Chloride 1,000 ML IVC ONE ×2 (21:19→23:25)
[2020-09-04] MEDS ORDERED: Ondansetron 4 MG/2 ML VIAL IVP ONE (21:19)
[2020-09-04 21:47] LABS: Bilirubin,Urine Small (Negative); Blood,Urine Moderate (Negative); Clarity,Urine Cloudy (Clear); Color,Urine Yellow (Yellow); Glucose,Urine (UA) Normal (Normal); Ketones,Urine 40 mg/dL (Negative); Leukocyte Esterase,Urine Small (Negative); Nitrite,Urine Negative (Negative); Protein,Urine 100 mg/dL (Neg-Trace); Specific Gravity,Urine >= 1.030 (1.010-1.025); Urobilinogen,Urine Normal (Normal)
[2020-09-04 21:59] LABS: Hyaline Casts,Urine None Seen per lpf (None Seen); Squamous Epithelial Cell,Urine Many per hpf (None-Few)
[2020-09-04 22:00] LABS: Bacteria,Urine Moderate per hpf (None-Few); WBC,Urine 30-50 per hpf (0-3)
[2020-09-04 22:44] LABS: Basophils % 0.3 %; Eosinophils % 0.1 %
[2020-09-04 22:45] LABS: Basophils # 0.1 K/mcL (0.0-0.2); Hematocrit 27.6 % (35.3-44.9); Hemoglobin 8.6 g/dL (11.5-15.4); Immature Granulocytes % 1.9 % (0-4); Lymphocytes # 1.6 K/mcL (0.6-4.6); Mean Corpuscular HGB Conc 31.2 g/dL (31.6-35.5); Mean Corpuscular Volume 96.2 fL (83.0-100.0); Monocytes # 1.3 K/mcL (0.0-1.3); Monocytes % 4.6 %; Neutrophils # 23.8 K/mcL (1.6-8.9); Platelet Count 690 K/mcL (140-400); Red Blood Count 2.87 M/mcL (3.82-4.97); Red Cell Distribution Width 16.1 % (11.5-14.5); Segmented Neutrophils % 87.1 %; White Blood Count 27.3 K/mcL (4.3-11.1)
[2020-09-04 22:53] LABS: Alanine Aminotransferase 17 Units/L (7-52); Albumin 2.2 g/dL (3.5-5.7); Albumin/Globulin Ratio 0.9 (1.1-2.2); Alkaline Phosphatase 108 Units/L (34-104); Aspartate Amino Transferase 11 Units/L (13-39); BUN/Creatinine Ratio 42 (6-26); Bilirubin,Direct 0.2 mg/dL (0.0-0.2); Bilirubin,Indirect 0.1 mg/dL (0.0-1.0); Bilirubin,Total 0.3 mg/dL (0.3-1.0); Blood Urea Nitrogen 33 mg/dL (8-23); Calcium 8.9 mg/dL (8.6-10.3); Carbon Dioxide 21 mEq/L (23-29); Chloride 104 mEq/L (98-107); Globulin 2.4 g/dL (2.4-3.5); Glucose 220 mg/dL (70-105); Lipase 3 Units/L (11-82); Magnesium 1.5 mg/dL (1.6-2.6); Osmolality,Calculated 292 (280-300); Potassium 5.3 mEq/L (3.5-5.1); Sodium 134 mEq/L (136-145); Total Protein 4.6 g/dL (6.4-8.9); eGFR For African Americans > 60 (> 60); eGFR For Non-African Americans > 60 (> 60)
[2020-09-04 23:18] LABS: Adenovirus Not Detected (Not Detect); Bordetella Pertussis Not Detected (Not Detect); Chlamydophila pneumoniae Not Detected (Not Detect); Coronavirus 229E Not Detected (Not Detect); Coronavirus HKU1 Not Detected (Not Detect); Coronavirus NL63 Not Detected (Not Detect); Coronavirus OC43 Not Detected (Not Detect); Human Metapneumovirus Not Detected (Not Detect); Human Rhinovirus/Enterovirus Not Detected (Not Detect); Influenza A Subtype 2009 H1 Not Detected (Not Detect); Influenza B Not Detected (Not Detect); Mycoplasma pneumoniae Not Detected (Not Detect); Parainfluenza Virus 1 Not Detected (Not Detect); Parainfluenza Virus 2 Not Detected (Not Detect); Parainfluenza Virus 3 Not Detected (Not Detect); Parainfluenza Virus 4 Not Detected (Not Detect); Respiratory Syncytial Virus Not Detected (Not Detect); SARS-CoV-2 Not Detected (Not Detect)
[2020-09-04] MEDS ORDERED: Pantoprazole 40 MG VIAL IVP ONE (23:19)
[2020-09-04] MEDS ORDERED: MetroNIDAZOLE 500 MG/100 ML 500 MG/100 ML BAG IVPB ONE (23:19)
[2020-09-05] MEDS ORDERED: Ondansetron 4 MG/2 ML VIAL IVP PRN (01:44)
[2020-09-05] MEDS ORDERED: Naloxone 0.4 MG/ML INJ IVP PRN (01:44)
[2020-09-05] MEDS ORDERED: Acetaminophen 325 MG TABLET PO PRN (01:44)
[2020-09-05] MEDS ORDERED: Dextrose Gel 15 GM/37.5 ML TUBE PO PRN ×2 (01:47)
[2020-09-05] MEDS ORDERED: D5% in Water 1,000 ML IVC PRN (01:47)
[2020-09-05] MEDS ORDERED: *HR* Dextrose 50 % in Water (Vial) 50 ML VIAL IVP PRN (01:47)
[2020-09-05] MEDS: Insulin LISPRO 300 UNITS/3 ML VIAL SUBQ SCH ×6 (02:14→20:05)
[2020-09-05] MEDS: 0.9 % Sodium Chloride 1,000 ML IVC SCH ×2 (02:29→14:03)
[2020-09-05 04:51] LABS: Adenovirus F 40/41 PCR Not detected (Not detect); Astrovirus PCR Not detected (Not detect); C.difficile Toxin A/B Gene PCR DETECTED (Not detect); Campylobacter by PCR Not detected (Not detect); Cryptosporidium by PCR Not detected (Not detect); Cyclospora cayetanensis PCR Not detected (Not detect); E. coli O157 by PCR Not detected (Not detect); Entamoeba histolytica PCR Not detected (Not detect); Enteroaggregative E.coli(EAEC) Not detected (Not detect); Enteropathogenic E.coli(EPEC) Not detected (Not detect); Enterotoxigenic E.coli (ETEC) Not detected (Not detect); Giardia lamblia PCR Not detected (Not detect); Norovirus GI/GII PCR Not detected (Not detect); Plesiomonas shigelloides PCR Not detected (Not detect); Rotavirus A PCR Not detected (Not detect); Salmonella PCR Not detected (Not detect); Sapovirus PCR Not detected (Not detect); Shig/EnteroinvasiveE coli EIEC Not detected (Not detect); Shigalike tox-prod E coli STEC Not detected (Not detect); Vibrio PCR Not detected (Not detect); Vibrio cholerae PCR Not detected (Not detect); Yersinia enterocolitica PCR Not detected (Not detect)
[2020-09-05] MEDS: Pantoprazole 40 MG VIAL IVP SCH ×2 (05:52→17:52)
[2020-09-05] MEDS: Vancomycin Oral Soln 125 MG/2.5 ML UDC PO SCH ×4 (05:53→21:05)
[2020-09-05 09:08] LABS: Hematocrit 22.7 % (35.3-44.9); Mean Corpuscular HGB Conc 30.8 g/dL (31.6-35.5); Mean Corpuscular Hemoglobin 29.2 pg (28.0-33.3); Mean Corpuscular Volume 94.6 fL (83.0-100.0); Mean Platelet Volume 9.3 fL (9.4-12.4); Platelet Count 551 K/mcL (140-400); Red Cell Distribution Width 16.3 % (11.5-14.5)
[2020-09-05 09:13] LABS: INR 1.5; Prothrombin Time 17.4 Seconds (9.4-12.1)
[2020-09-05 09:41] LABS: Alanine Aminotransferase 14 Units/L (7-52); Albumin 1.7 g/dL (3.5-5.7); Albumin/Globulin Ratio 0.9 (1.1-2.2); Alkaline Phosphatase 83 Units/L (34-104); Aspartate Amino Transferase 9 Units/L (13-39); BUN/Creatinine Ratio 43 (6-26); Bilirubin,Total 0.2 mg/dL (0.3-1.0); Blood Urea Nitrogen 32 mg/dL (8-23); Calcium 7.9 mg/dL (8.6-10.3); Carbon Dioxide 20 mEq/L (23-29); Chloride 111 mEq/L (98-107); Glucose 108 mg/dL (70-105); Magnesium 1.3 mg/dL (1.6-2.6); Osmolality,Calculated 291 (280-300); Phosphorous 3.6 mg/dL (2.7-4.5); Potassium 4.5 mEq/L (3.5-5.1); Sodium 137 mEq/L (136-145); Total Protein 3.7 g/dL (6.4-8.9); eGFR For African Americans > 60 (> 60); eGFR For Non-African Americans > 60 (> 60)
[2020-09-05 10:10] LABS: Lymphocytes # 2.5 K/mcL (0.6-4.6); Monocytes # 0.8 K/mcL (0.0-1.3); Neutrophils # 21.5 K/mcL (1.6-8.9)
[2020-09-05 10:11] LABS: Platelet Estimate Increased (Normal)
[2020-09-05 10:13] LABS: Toxic Granulation Present (Not Present)
[2020-09-05] MEDS: Ertapenem 1,000 MG in 0.9 % Sodium Chloride Mini Bag 100 ML IVPB SCH (10:40)
[2020-09-05] MEDS ORDERED: 0.9 % Sodium Chloride 250 ML IVC SCH (12:30)
[2020-09-05] MEDS ORDERED: MetroNIDAZOLE 500 MG/100 ML 500 MG/100 ML BAG IVPB SCH ×2 (13:00→22:00)
[2020-09-05 14:08] LABS: Hematocrit 24.5 % (35.3-44.9); Hemoglobin 7.6 g/dL (11.5-15.4)
[2020-09-06 00:12] LABS: Hematocrit 31.5 % (35.3-44.9)
[2020-09-06 00:16] LABS: Hemoglobin 9.6 g/dL (11.5-15.4)
[2020-09-06] MEDS: Pantoprazole 40 MG VIAL IVP SCH ×2 (05:15→17:04)
[2020-09-06 07:35] LABS: Basophils # 0.1 K/mcL (0.0-0.2); Basophils % 0.7 %; Eosinophils # 0.6 K/mcL (0.0-0.6); Eosinophils % 3.2 %; Hematocrit 28.6 % (35.3-44.9); Hemoglobin 8.9 g/dL (11.5-15.4); Immature Granulocytes % 3.3 % (0-4); Lymphocytes # 2.5 K/mcL (0.6-4.6); Lymphocytes % 12.8 %; Mean Corpuscular HGB Conc 31.1 g/dL (31.6-35.5); Mean Corpuscular Hemoglobin 29.2 pg (28.0-33.3); Mean Corpuscular Volume 93.8 fL (83.0-100.0); Monocytes # 1.6 K/mcL (0.0-1.3); Monocytes % 7.9 %; Neutrophils # 14.3 K/mcL (1.6-8.9); Platelet Count 310 K/mcL (140-400); Red Blood Count 3.05 M/mcL (3.82-4.97); Red Cell Distribution Width 16.4 % (11.5-14.5); Segmented Neutrophils % 72.1 %; White Blood Count 19.8 K/mcL (4.3-11.1)
[2020-09-06 07:47] LABS: BUN/Creatinine Ratio 34 (6-26); Blood Urea Nitrogen 27 mg/dL (8-23); Calcium 7.5 mg/dL (8.6-10.3); Carbon Dioxide 20 mEq/L (23-29); Chloride 112 mEq/L (98-107); Glucose 100 mg/dL (70-105); Magnesium 1.7 mg/dL (1.6-2.6); Osmolality,Calculated 289 (280-300); Potassium 4.5 mEq/L (3.5-5.1); Sodium 137 mEq/L (136-145); eGFR For African Americans > 60 (> 60); eGFR For Non-African Americans > 60 (> 60)
[2020-09-06] MEDS: Insulin LISPRO 300 UNITS/3 ML VIAL SUBQ SCH ×4 (08:24→21:29)
[2020-09-06] MEDS: Vancomycin Oral Soln 125 MG/2.5 ML UDC PO SCH ×4 (09:28→21:28)
[2020-09-06] MEDS: Ertapenem 1,000 MG in 0.9 % Sodium Chloride Mini Bag 100 ML IVPB SCH (09:29)
[2020-09-06 15:27] LABS: % Iron Saturation 37 % (15-50); Iron 43 mcg/dL (50-170); Transferrin 84 mg/dL (203-362)
[2020-09-06 15:50] LABS: Folate 19.6 ng/mL (3.0-16.0)
[2020-09-06 15:56] LABS: Vitamin B12 > 1500 pg/mL (250-1100)
[2020-09-07 05:27] LABS: Basophils # 0.1 K/mcL (0.0-0.2); Basophils % 0.6 %; Eosinophils # 0.4 K/mcL (0.0-0.6); Eosinophils % 1.7 %; Hematocrit 29.5 % (35.3-44.9); Hemoglobin 9.1 g/dL (11.5-15.4); Immature Granulocytes % 4.2 % (0-4); Lymphocytes # 3.1 K/mcL (0.6-4.6); Lymphocytes % 14.7 %; Mean Corpuscular HGB Conc 30.8 g/dL (31.6-35.5); Mean Corpuscular Hemoglobin 28.9 pg (28.0-33.3); Mean Corpuscular Volume 93.7 fL (83.0-100.0); Mean Platelet Volume 9.3 fL (9.4-12.4); Monocytes # 1.6 K/mcL (0.0-1.3); Monocytes % 7.4 %; Platelet Count 561 K/mcL (140-400); Red Blood Count 3.15 M/mcL (3.82-4.97); Red Cell Distribution Width 15.9 % (11.5-14.5); Segmented Neutrophils % 71.4 %
[2020-09-07 05:29] LABS: VBG Ionized Calcium 1.13 mmol/L (1.15-1.35)
[2020-09-07] MEDS: Pantoprazole 40 MG VIAL IVP SCH (05:53)
[2020-09-07 05:54] LABS: BUN/Creatinine Ratio 22 (6-26); Blood Urea Nitrogen 13 mg/dL (8-23); Calcium 7.2 mg/dL (8.6-10.3); Carbon Dioxide 22 mEq/L (23-29); Chloride 109 mEq/L (98-107); Glucose 160 mg/dL (70-105); Magnesium 1.5 mg/dL (1.6-2.6); Osmolality,Calculated 286 (280-300); Potassium 4.2 mEq/L (3.5-5.1); Sodium 136 mEq/L (136-145); eGFR For African Americans > 60 (> 60); eGFR For Non-African Americans > 60 (> 60)
[2020-09-07] MEDS ORDERED: Calcium Gluconate 1gm/50mL 1 GM/50 ML BAG IVPB ONE (07:55)
[2020-09-07] MEDS: Vancomycin Oral Soln 125 MG/2.5 ML UDC PO SCH ×4 (08:36→20:59)
[2020-09-07] MEDS: Insulin LISPRO 300 UNITS/3 ML VIAL SUBQ SCH ×3 (08:36→16:18)
[2020-09-07] MEDS: Ertapenem 1,000 MG in 0.9 % Sodium Chloride Mini Bag 100 ML IVPB SCH (08:39)
[2020-09-07] MEDS: Fosfomycin Tromethamine 3 GM Packet PO SCH (12:31)
[2020-09-07] MEDS: risperiDONE 0.25 MG TABLET PO SCH (20:57)
[2020-09-07] MEDS: Mirtazapine 15 MG TABLET PO SCH (20:58)
[2020-09-07] MEDS: rOPINIRole 0.25 MG TABLET PO SCH (20:58)
[2020-09-07] MEDS: Melatonin 3 MG TABLET PO SCH (20:59)
[2020-09-07] MEDS: atenoloL 25 MG TABLET PO SCH (20:59)
[2020-09-07] MEDS: Insulin DETEMIR 100 UNIT/ML X5UNITS SUBQ SCH (21:00)
[2020-09-08] MEDS: Insulin LISPRO 300 UNITS/3 ML VIAL SUBQ SCH ×5 (05:47→21:51)
[2020-09-08 07:37] LABS: BUN/Creatinine Ratio 12 (6-26); Blood Urea Nitrogen 6 mg/dL (8-23); Calcium 7.3 mg/dL (8.6-10.3); Carbon Dioxide 22 mEq/L (23-29); Chloride 107 mEq/L (98-107); Glucose 146 mg/dL (70-105); Magnesium 1.6 mg/dL (1.6-2.6); Osmolality,Calculated 276 (280-300); Potassium 4.9 mEq/L (3.5-5.1); Sodium 133 mEq/L (136-145); eGFR For African Americans > 60 (> 60); eGFR For Non-African Americans > 60 (> 60)
[2020-09-08 07:56] LABS: Hematocrit 30.1 % (35.3-44.9); Hemoglobin 9.6 g/dL (11.5-15.4); Mean Corpuscular HGB Conc 31.9 g/dL (31.6-35.5); Mean Corpuscular Hemoglobin 29.5 pg (28.0-33.3); Mean Corpuscular Volume 92.6 fL (83.0-100.0); Mean Platelet Volume 10.2 fL (9.4-12.4); Platelet Count 489 K/mcL (140-400); Red Blood Count 3.25 M/mcL (3.82-4.97); Red Cell Distribution Width 15.6 % (11.5-14.5); White Blood Count 20.3 K/mcL (4.3-11.1)
[2020-09-08 08:59] LABS: Anisocytosis 1+ (Not Present); Eosinophils # 0.4 K/mcL (0.0-0.6); Lymphocytes # 2.8 K/mcL (0.6-4.6); Monocytes # 2.4 K/mcL (0.0-1.3); Neutrophils # 14.2 K/mcL (1.6-8.9)
[2020-09-08] MEDS: atenoloL 25 MG TABLET PO SCH ×2 (09:25→21:57)
[2020-09-08] MEDS: Vancomycin Oral Soln 125 MG/2.5 ML UDC PO SCH ×4 (09:25→22:08)
[2020-09-08] MEDS: Famotidine 20 MG TABLET PO SCH (09:25)
[2020-09-08] MEDS: rOPINIRole 0.25 MG TABLET PO SCH ×2 (09:25→21:55)
[2020-09-08] MEDS: Aspirin Enteric Coated 81 MG Tablet PO SCH (09:25)
[2020-09-08] MEDS: Insulin DETEMIR 100 UNIT/ML X5UNITS SUBQ SCH (21:50)
[2020-09-08] MEDS: risperiDONE 0.25 MG TABLET PO SCH (21:53)
[2020-09-08] MEDS: Mirtazapine 15 MG TABLET PO SCH (21:54)
[2020-09-08] MEDS: Melatonin 3 MG TABLET PO SCH (21:54)
[2020-09-09] MEDS: Insulin LISPRO 300 UNITS/3 ML VIAL SUBQ SCH ×2 (08:13→12:09)
[2020-09-09] MEDS: Vancomycin Oral Soln 125 MG/2.5 ML UDC PO SCH ×2 (08:20→12:15)
[2020-09-09] MEDS: rOPINIRole 0.25 MG TABLET PO SCH (08:21)
[2020-09-09] MEDS: atenoloL 25 MG TABLET PO SCH (08:21)
[2020-09-09] MEDS: Famotidine 20 MG TABLET PO SCH (08:21)
[2020-09-09] MEDS: Aspirin Enteric Coated 81 MG Tablet PO SCH (08:21)
[2020-09-09 10:17] VITALS: BP 129/67
[2020-09-09] MEDS: Fosfomycin Tromethamine 3 GM Packet PO SCH (12:15)
[2020-09-09] MEDS ORDERED: Ondansetron ODT 4 MG TAB.RAPDIS SL ONE (13:30)
== END 2020-09-09 13:47 | DRG 871 ==
LOC: EMEROOARM 20:11 → 3ANU 20:11 → SUATTDRO 09-06 13:15
PROVIDERS: ADMIT Student in an Organized Health Care Education/Training Program; ATTEND Internal Medicine